=== PATIENT | female | born 1955 | race African-American/Black ===

== ENCOUNTER → 2017-03-21 | Outpatient (CLI) | payer MEDICARE ==
--- NOTE | 2017-03-21 13:17 | WOMENS IMAGING REPORT ---
EXAM DESCRIPTION: 3D SCREENING MAMMO BILAT COMPLETED DATE/TIME: 03/21/2017 7:36 am REASON FOR STUDY: SCREENING MAMMO Z12.31 ENCNTR SCREEN MAMMOGRAM FOR MALIGNANT NEOPLASM OF ADRIENNE COMPARISON: None. TECHNIQUE: Standard craniocaudal and mediolateral oblique views of each breast recorded using digita l acquisition and breast tomosynthesis. LIMITATIONS: None. FINDINGS: No masses, calcifications or architectural distortion. No areas of suspicion. Read with the assistance of CAD. .[facility] - R2 Cenova Version 1.3 .[facility] - R2 Cenova Version 1.3 .[facility] - R2 Cenova Version 2.4 .[facility] - R2 Cenova Version 2.4 .[facility] - R2 Business Instructor Version 9.2 IMPRESSION: NORMAL MAMMOGRAM. BIRADS 1. BREAST DENSITY: b. There are scattered areas of fibroglandular density. BIRAD: 1 NEGATIVE RECOMMENDATION: ROUTINE SCREENING COMMENT: The patient has been notified of the results by letter per SA requirements. Additional no tification policies are in place for contacting patient with suspicious or incomplete findings. Quality ID #[id number]: The [employer] recommends an annual screening mammogram for women aged 40 years or over. This facility utilizes a reminder system to ensure that all patients receive reminder letters, and/or direct phone calls for appointments. This includes reminders for routine scr eening mammograms, diagnostic mammograms, or other Breast Imaging Interventions when appropriate. Th is patient will be placed in the appropriate reminder system. The [employer] (ACR) has developed recommendations for screening MRI of the breast s in certain patient populations, to be used in conjunction with mammography. Breast MRI surveillanc e may be appropriate for women with more than 20% lifetime risk of developing breast cancer as deter mined by genetic testing, significant family history of the disease, or history of mantle radiation f or Hodgkins Disease. ACR Practice Guidelines 2008. DBT Technology DBT is a type of tomographic mammography. With conventional mammography, overlapping breast tissue ma y make lesions difficult to detect, even with good compression. DBT uses an x-ray tube that rotates a round the breast, taking images at different angles. These images are then combined to create thin sl ices of the breast that the radiologist can view as a 3D reconstruction. The [employer] unit can perform full-field digital mammograms (2D imaging); or DBT (3D imaging); or both, in a combination mode that quickly performs both the mammogram and the tomosynthesis scan while the breast is still compressed. PQRS 6045F: Fluoroscopic imaging is not utilized for breast tomosynthesis. TECHNICAL DOCUMENTATION: FINDING NUMBER: (1) ASSESSMENT: (1) JOB ID: [id number] [employer]- All Rights Reserved
== END ==
LOC: WI 07:17
PROVIDERS: ATTEND Internal Medicine
DX: Z12.31 Encounter for screening mammogram for malignant neoplasm of breast (principal)
CPT/HCPCS: 77063; G0202; 77067

== ENCOUNTER → 2017-08-07 | Outpatient (CLI) | payer MEDICARE ==
--- NOTE | 2017-08-07 10:12 | RADIOLOGY REPORT (SQ) ---
EXAM DESCRIPTION: PARANASAL SINUSES COMPLETED DATE/TIME: 08/07/2017 10:00 am REASON FOR STUDY: COUGH,PNEUMONIA, UNSPECIFIED ORGANISM R05 COUGH J18.9 PNEUMONIA, UNSPECIFIED ORG ANISM COMPARISON: None. NUMBER OF VIEWS: Three views. TECHNIQUE: Images of the paranasal sinuses acquired. LIMITATIONS: None. FINDINGS: ORBITS: No fracture. No foreign body. SINUSES: No mucosal thickening. No air fluid levels. FACIAL BONES: No fracture. OTHER: No other significant finding. IMPRESSION: NO PLAIN RADIOGRAPHIC EVIDENCE FOR SINUS DISEASE. TECHNICAL DOCUMENTATION: JOB ID: [id number] [employer]- All Rights Reserved Reading location - IP/workstation name: [email or web address]
--- NOTE | 2017-08-07 10:14 | RADIOLOGY REPORT (SQ) ---
EXAM DESCRIPTION: CHEST PA/LATERAL COMPLETED DATE/TIME: 08/07/2017 10:00 am REASON FOR STUDY: COUGH,PNEUMONIA, UNSPECIFIED ORGANISM R05 COUGH J18.9 PNEUMONIA, UNSPECIFIED ORG ANISM COMPARISON: 06/08/2012 NUMBER OF VIEWS: Two view. TECHNIQUE: Frontal and lateral radiographic views of the chest acquired. LIMITATIONS: None. FINDINGS: LUNGS AND PLEURA: No opacities, masses or pneumothorax. No pleural effusion. MEDIASTINUM AND HILAR STRUCTURES: No masses. No contour abnormalities. HEART AND VASCULAR STRUCTURES: Heart enlarged without failure. Aorta normal for age. BONES: No acute findings. HARDWARE: None in the chest. OTHER: No other significant finding. IMPRESSION: No acute findings in the chest. TECHNICAL DOCUMENTATION: JOB ID: [id number] [employer]- All Rights Reserved Reading location - IP/workstation name: [email or web address]
== END ==
LOC: OD 09:37
PROVIDERS: ATTEND Internal Medicine
DX: J18.9 Pneumonia, unspecified organism (principal); R05 Cough
CPT/HCPCS: 70220; 71046

== ENCOUNTER 2018-06-26 15:22 | Day surgery (SDC) | payer MEDICARE ==
[2018-06-26] MEDS ORDERED: ONDANSETRON HCL INJ/PF 4 MG/2 ML SDV ONE (15:40)
[2018-06-26] MEDS ORDERED: DIPHENHYDRAMINE HCL 50 MG/ML VIAL ONE (15:40)
[2018-06-26] MEDS ORDERED: FLUMAZENIL INJ 0.5 MG/5 ML VIAL ONE (15:41)
[2018-06-26] MEDS ORDERED: EPINEPHRINE INJ 1 MG/10 ML DISP.SYRIN ONE (15:41)
[2018-06-26] MEDS ORDERED: GLUCAGON,HUMAN RECOMB 1 MG INJ ONE (15:41)
[2018-06-26] MEDS ORDERED: NALOXONE HCL INJ/PF 0.4 MG/1 ML SDV ONE (15:41)
[2018-06-26] MEDS: MIDAZOLAM 2 MG/2 ML INJ ONE ×3 (16:47→17:14)
[2018-06-26] MEDS: FENTANYL CITRATE INJ/PF 100 MCG/2 ML AMPUL ONE ×2 (16:49→16:51)
--- NOTE | 2018-06-26 17:32 | Operative Report ---
Operative Report DATE OF SURGERY: 06/26/18 Operative Report: Pre-op diagnosis: Iron deficiency anemia with abnormal capsule endoscopy Post-op diagnosis: 1. Tiny jejunal angiodysplasia 2. Multiple small gastric angiodysplasia with active bleeding 3. Jejunal polyp Surgery: Esophagogastroduodenoscopy with argon plasma coagulation, polypectomy, and bipolar cauterization Medications: Versed 4mg Fentanyl 100mcg IV push Tissue removed: Jejunal polyp for pathology Procedure: After informed consent obtained from patient, the throat was sprayed with Hurricane and conscious sedation was achieved. The upper endoscope was inserted into the esophagus under direct vision and advanced into the stomach. The duodenum was entered and examined to the second part. Endoscope was then slowly pulled out of the patient as the mucosa was examined into details. Patient tolerated procedure well. Findings Esophagus: Normal Antrum: Normal Body: Two 2mm angiodysplasia that were cauterized using the argon plasma ski tow operator. A third angiodysplasia was noted that was actively bleeding on my way out of the stomach. This was cauterized using a bipolar probe Fundus: Normal Duodenum first part: Normal Duodenum second part: Normal Jejunum: The jejunum was examined up to 40 cm beyond the ligament of Treitz. A tiny angiodysplasia was cauterized using the APC probe Plan: Await pathology. Hold 325 mg of aspirin for 5 days and resume with 81 mg of aspirin daily. Increase omeprazole to twice a day for a month OPERATION: .
[2018-06-26 18:42] VITALS: BP 116/70
== END 2018-06-26 18:30 | disposition home or self-care (01) ==
LOC: END 15:22
PROVIDERS: ATTEND Internal Medicine Gastroenterology
DX: K31.7 Polyp of stomach and duodenum (principal); K31.811 Angiodysplasia of stomach and duodenum with bleeding; D50.9 Iron deficiency anemia, unspecified; Z88.5 Allergy status to narcotic agent
CPT/HCPCS: 43255; 43251; 44378; 82962; 88305 ×2; J2250; J3010; J0171; J1200; J1610; J2310; J2405; J3490

== ENCOUNTER → 2018-07-27 | Outpatient (CLI) | payer MEDICARE ==
--- NOTE | 2018-07-27 12:17 | WOMENS IMAGING REPORT ---
EXAM DESCRIPTION: 3D SCREENING MAMMO BILAT COMPLETED DATE/TIME: 07/27/2018 8:09 am REASON FOR STUDY: Z12.31 ROUTINE 3D BILATERAL SCREENING Z12.31 ENCNTR SCREEN MAMMOGRAM FOR MALIGNAN T NEOPLASM OF ADRIENNE COMPARISON: 2018 EXAM PARAMETERS: Views: Standard craniocaudal and mediolateral oblique views of each breast recorded using digital acquisition and breast tomosynthesis. Read with the assistance of CAD. .[facility] - R2 Cognos Architect Version 9.2 LIMITATIONS: None. FINDINGS: No suspicious masses, suspicious calcifications or architectural distortion. No areas of c oncern. IMPRESSION: Assessment: Negative MAMMOGRAM. BIRADS 1. BREAST DENSITY: a. The breasts are almost entirely fatty. BIRAD: 1 NEGATIVE RECOMMENDATION: ROUTINE SCREENING COMMENT: The patient has been notified of the results by letter per MQSA requirements. Additional no tification policies are in place for contacting patient with suspicious or incomplete findings. Quality ID #225: The [employer] recommends an annual screening mammogram for women aged 40 years or over. This facility utilizes a reminder system to ensure that all patients receive reminder letters, and/or direct phone calls for appointments. This includes reminders for routine scr eening mammograms, diagnostic mammograms, or other Breast Imaging Interventions when appropriate. Th is patient will be placed in the appropriate reminder system. TECHNICAL DOCUMENTATION: FINDING NUMBER: (1) ASSESSMENT: (1) JOB ID: [id number] [employer]- All Rights Reserved Reading location - IP/workstation name: [email or web address]
== END ==
LOC: WI 07:41
PROVIDERS: ATTEND Internal Medicine
DX: Z12.31 Encounter for screening mammogram for malignant neoplasm of breast (principal)
CPT/HCPCS: 77063; 77067

== ENCOUNTER → 2020-02-18 | Outpatient (CLI) | payer MEDICARE ==
--- NOTE | 2020-02-18 11:09 | WOMENS IMAGING REPORT ---
EXAM DESCRIPTION: 3D SCREENING MAMMO BILAT IMAGES COMPLETED DATE/TIME: 02/18/2020 10:08 am REASON FOR STUDY: Z12.31 ENCNTR SCREEN MAMMOGRAM FOR MALIGNANT NEOPLASM OF BREAST Z12.31 ENCNTR SCR EEN MAMMOGRAM FOR MALIGNANT NEOPLASM OF ADRIENNE COMPARISON: 2018 EXAM PARAMETERS: Views: Standard craniocaudal and mediolateral oblique views of each breast recorded using digital acquisition and breast tomosynthesis. Read with the assistance of CAD. .[facility] - R2 Productivity Engineer Version 9.2 LIMITATIONS: None. FINDINGS: No suspicious masses, suspicious calcifications or architectural distortion. No areas of c oncern. IMPRESSION: NEGATIVE MAMMOGRAM. BIRADS 1. BREAST DENSITY: b. There are scattered areas of fibroglandular density. BIRAD: ASSESSMENT: 1 NEGATIVE RECOMMENDATION: ROUTINE SCREENING COMMENT: The patient has been notified of the results by letter per MQSA requirements. Additional no tification policies are in place for contacting patient with suspicious or incomplete findings. Quality ID #225: The [employer] recommends an annual screening mammogram for women aged 40 years or over. This facility utilizes a reminder system to ensure that all patients receive reminder letters, and/or direct phone calls for appointments. This includes reminders for routine scr eening mammograms, diagnostic mammograms, or other Breast Imaging Interventions when appropriate. Th is patient will be placed in the appropriate reminder system. TECHNICAL DOCUMENTATION: FINDING NUMBER: (1) ASSESSMENT: (1) JOB ID: [id number] [employer]- All Rights Reserved Reading location - IP/workstation name: [email or web address]
== END ==
LOC: WI 09:46
PROVIDERS: ATTEND Internal Medicine
DX: Z12.31 Encounter for screening mammogram for malignant neoplasm of breast (principal)
CPT/HCPCS: 77063; 77067

== ENCOUNTER 2020-04-07 00:16 | Inpatient (IN) | payer MEDICARE ==
[2020-04-07] MEDS ORDERED: IPRATROPIUM/ALBUTEROL 0.5-2.5 MG/3 ML AMPUL NEB ONE ×2 (00:24→00:31)
--- NOTE | 2020-04-07 00:37 | ER Document Report ---
ED General - General Chief Complaint: Respiratory Distress Stated Complaint: RESPIRATORY DISTRESS Notes: 65-year-old female with history of hypertension diabetes COPD on home O2 2 L presents with worsening shortness of breath over the past day. Patient has had cough cold symptoms over the past approximately 6 days as has everybody in her household. Patient was scheduled to have a Covid test tomorrow but felt more short of breath so called EMS. Patient was satting 30s on room air per EMS which came up to 70s on CPAP 100% FiO2. Patient denies any chest pain, lower extremity edema, cardiac history, fever, hemoptysis, diarrhea, vomiting, abdominal pain, syncope, trauma. Given 2 g of mag, 125 Solu-Medrol by EMS. TRAVEL OUTSIDE OF THE [place] IN LAST 30 DAYS: No - Related Data Allergies/Adverse Reactions: codeine [Codeine] Allergy (Unknown, Verified 06/26/18 15:46) Past Medical History - General Information source: Patient - Social History Smoking Status: Smoker,Current Status Unk Family History: Reviewed & Not Pertinent - Past Medical History Cardiac Medical History: Reports: Hx Hypertension - MEDS Denies: Hx Coronary Artery Disease, Hx Heart Attack Pulmonary Medical History: Reports: Hx COPD - WEARS 3L O2 AT NIGHT Denies: Hx Asthma, Hx Bronchitis, Hx Pneumonia Neurological Medical History: Denies: Hx Cerebrovascular Accident, Hx Seizures Endocrine Medical History: Reports: Hx Diabetes Mellitus Type 2 Musculoskeletal Medical History: Denies Hx Arthritis - Immunizations Hx Diphtheria, Pertussis, Tetanus Vaccination: Yes Hx Pneumococcal Vaccination: 01/09/13 Review of Systems - Review of Systems -: Yes ROS unobtainable due to patient's medical condition - BiPAP Physical Exam - Vital signs Vitals: Resp Pulse Ox 21 H 87 L 04/07/20 00:16 04/07/20 00:16 - Notes Notes: PHYSICAL EXAMINATION: GENERAL: Uncomfortable appearing middle-aged woman brought in on CPAP with tachypnea HEAD: Atraumatic, normocephalic. EYES: Pupils equal round and appropriate constriction, sclera anicteric, conjunctiva are normal. ENT: nares patent, moist mucous membranes. NECK: Normal range of motion, supple without lymphadenopathy LUNGS: Tachypneic with accessory muscle use on CPAP which resolved with BiPAP, scattered rhonchi bilaterally, good air movement, no wheezing HEART: Regular rate and rhythm without murmurs ABDOMEN: Soft, nontender, no guarding, no masses, no CVAT EXTREMITIES: Normal range of motion, no pitting or edema. No cyanosis. NEUROLOGICAL: Awake, alert, conversing appropriately, moves all extremities spontaneously. PSYCH: Normal mood, normal affect. SKIN: Warm, Dry, normal turgor, no rashes or lesions noted. Course - Re-evaluation Re-evalutation: 04/07/20 00:36 Respiratory failure requiring NIPPV, patient was satting 70s on CPAP but is now maintaining sats in the low 90s on BiPAP and her work of breathing has greatly improved. Given 1 week of viral symptoms with all household contacts also sick concerning for COVID-19 infection. Rule out bacterial pneumonia, new onset CHF, ACS, PE, but low pretest probability. EKG, chest x-ray, BiPAP, monitor, labs with viral filter, trop, BNP, and admit. 04/07/20 00:52 Blood pressure low, but patient clinically appears to be perfusing normally, denies any dizziness or weakness, when I repositioned patient and rechecked blood pressure it improved. Will give bolus of crystalloid however as patient has likely been having increased insensible losses over the past 6 days of illness. 04/07/20 02:13 Given density of right infiltrate not classically found with COVID-19 pneumonia I ordered blood cultures lactate and gave empiric antibiotics to cover for bacterial superinfection. Discussed case with Dr. Dumont who has accepted her to [facility]. Patient's hemoglobin 9.2, has not been checked for greater than 5 years here but last value here was 11. Patient says that she has been on iron supplementation for iron deficiency anemia for years and has had black stools for years without any current change, denies any abdominal pain, says she has 1 formed stool per day. On rectal exam guaiac was positive. I informed the RN and asked that she hold the Lovenox I had ordered. I called Dr. Dumont back and informed him that the hemoglobin was lower than the only available baseline I have and that her guaiac was positive and asked if he wanted to cancel his Lovenox prophylaxis order as well, but he does not want to cancel Lovenox prophylaxis at this time. The patient was evaluated during the global COVID-19 pandemic and that diagnosis was suspected/considered upon their initial presentation. Their evaluation, treatment and testing was consistent with current guidelines for patients who present with complaints or symptoms that may be related to COVID-19. - Vital Signs Vital signs: Temp Pulse Resp BP Pulse Ox 97.4 F 112 H 32 H 154/97 H 87 L 04/10/20 04:11 04/10/20 04:11 04/10/20 04:33 04/10/20 04:11 04/10/20 04:33 - Laboratory Results Result Diagrams: 04/10/20 05:50 04/10/20 05:50 Laboratory Results Interpreted: 04/07/20 04/07/20 04/07/20 00:26 00:26 00:26 WBC 14.2 H Hgb 9.2 L Hct 28.9 L MCV 75 L MCH 23.7 L MCHC 31.8 L RDW 17.8 H Lymph % (Auto) 10.0 L Absolute Neuts (auto) 12.2 H Seg Neutrophils % 86.3 H APTT Fibrinogen D-Dimer 3.23 H Sodium 135.8 L Chloride 96 L Carbon Dioxide 31 H BUN 27 H Glucose 270 H Calcium 7.7 L NT-Pro-B Natriuret Pep Total Protein 5.3 L Albumin 2.8 L 04/07/20 04/07/20 00:26 00:26 WBC Hgb Hct MCV MCH MCHC RDW Lymph % (Auto) Absolute Neuts (auto) Seg Neutrophils % APTT 46.1 H Fibrinogen 726 H D-Dimer Sodium Chloride Carbon Dioxide BUN Glucose Calcium NT-Pro-B Natriuret Pep 186 H Total Protein Albumin Critical Laboratory Results Reviewed: No Critical Results - Radiology Results Critical Radiology Results Reviewed: No Critical Results Critical Care Note - Critical Care Note Total time excluding time spent on procedures (mins): 35 - Spent time evaluating critically ill patient requiring BiPAP for hypoxic and hypercapnic respiratory failure Discharge - Discharge Clinical Impression: Pneumonia due to COVID-19 virus, Hypocalcemia Pneumonia Qualifiers: Pneumonia type: due to unspecified organism Laterality: right Lung location: unspecified part of lung Qualified Code(s): J18.9 - Pneumonia, unspecified organism Respiratory failure Qualifiers: Chronicity: acute on chronic Respiratory failure complication: hypoxia and hypercapnia Qualified Code(s): J96.21 - Acute and chronic respiratory failure with hypoxia GI bleed Qualifiers: GI bleed type/associated pathology: unspecified gastrointestinal hemorrhage type Qualified Code(s): K92.2 - Gastrointestinal hemorrhage, unspecified Disposition: ADMITTED INPATIENT Unit Admitted: [facility]
[2020-04-07 00:52] LABS: ABSOLUTE BASOPHILS # (AUTO) 0.1 10^3/uL (0.0-0.2); ABSOLUTE LYMPHOCYTES (AUTO) 1.4 10^3/uL (0.5-4.7); ABSOLUTE MONOCYTES (AUTO) 0.4 10^3/uL (0.1-1.4); ABSOLUTE NEUT (AUTO) 12.2 10^3/uL (1.7-8.2); BASOPHILS % (AUTO) 0.5 % (0-2); HEMATOCRIT 28.9 % (36.0-47.0); HEMOGLOBIN 9.2 g/dL (12.0-15.5); MEAN CORPUSCULAR HEMOGLOBIN 23.7 pg (27.0-33.4); MEAN CORPUSCULAR HGB CONC 31.8 g/dL (32.0-36.0); MEAN CORPUSCULAR VOLUME 75 fl (80-97); MONOCYTES % (AUTO) 3.2 % (3-13); PLATELET COUNT 408 10^3/uL (150-450); RED BLOOD COUNT 3.87 10^6/uL (3.72-5.28); RED CELL DISTRIBUTION WIDTH 17.8 % (11.5-14.0); SEGMENTED NEUTROPHILS % (AUTO) 86.3 % (42-78); TOTAL CELLS COUNTED % (AUTO) 100 %; WHITE BLOOD COUNT 14.2 10^3/uL (4.0-10.5)
[2020-04-07] MEDS ORDERED: NORMAL SALINE 1000 ML 1,000 ML IV ONE (00:52)
[2020-04-07 01:01] LABS: VENOUS BLOOD BASE EXCESS 2.2 mmol/L; VENOUS BLOOD HCO3 28.3 mmol/L (20-32); VENOUS BLOOD PCO2 50.3 mmHg (35-63); VENOUS BLOOD PH 7.37 (7.30-7.42)
--- NOTE | 2020-04-07 01:29 | RADIOLOGY REPORT (SQ) ---
EXAM DESCRIPTION: X-ray single view chest. CLINICAL HISTORY: 65 years Female, resp distress COMPARISON: 08/07/2017 TECHNIQUE: Single portable x-ray view of the chest performed on 04/07/2020 at 12:57 AM FINDINGS: The lungs are well-expanded. There is airspace consolidation in the right midlung and right inferior hemithorax. There may be airspace consolidation along the left lateral hemithorax as well. Findings are concerning for multifocal pneumonia. There is no evidence of a pneumothorax. The cardiac silhouette is normal in size and configuration. The mediastinal contours are normal. No acute osseous abnormality is identified. No acute soft tissue abnormalities are seen. Lines and tubes: None. Free air: None IMPRESSION: Radiographic findings concerning for multifocal pneumonia as described above.
[2020-04-07 01:30] LABS: ALBUMIN 2.8 g/dL (3.5-5.0); ALKALINE PHOSPHATASE 73 U/L (38-126); ANION GAP 9 (5-19); ASPARTATE AMINO TRANSFERASE 31 U/L (14-36); BILIRUBIN,DIRECT 0.3 mg/dL (0.0-0.4); BILIRUBIN,TOTAL 0.4 mg/dL (0.2-1.3); BLOOD UREA NITROGEN 27 mg/dL (7-20); CALCIUM 7.7 mg/dL (8.4-10.2); CARBON DIOXIDE 31 mmol/L (22-30); CHLORIDE 96 mmol/L (98-107); GLUCOSE 270 mg/dL (75-110); POTASSIUM 4.4 mmol/L (3.6-5.0); TOTAL PROTEIN 5.3 g/dL (6.3-8.2)
[2020-04-07 01:40] LABS: TROPONIN I 0.015 ng/mL
[2020-04-07] MEDS ORDERED: CALCIUM GLUCONATE 1000 MG/10 ML INJ IV ONE (01:47)
[2020-04-07] MEDS ORDERED: CEFTRIAXONE 1 GM/D5W RTU 1 GM/50 ML RTUPB IV ONE (01:49)
[2020-04-07] MEDS ORDERED: AZITHROMYCIN INJ 500 MG VIAL IV ONE (01:49)
[2020-04-07] MEDS ORDERED: ENOXAPARIN SODIUM INJ 150 MG/1 ML DISP.SYRIN SUBCUT ONE (01:51)
[2020-04-07] MEDS ORDERED: DEXTROSE 50%-WATER 25 GM/50 ML DISP.SYRIN IV PRN ×4 (02:08→20:30)
[2020-04-07] MEDS ORDERED: GLUCAGON,HUMAN RECOMB 1 MG INJ IM PRN ×2 (02:08→20:30)
[2020-04-07] MEDS ORDERED: DEXTROSE 40% GEL 15 GM TUBE PO PRN ×4 (02:08→20:30)
[2020-04-07] MEDS ORDERED: ENOXAPARIN SODIUM INJ 40 MG/0.4 ML DISP.SYRIN SUBCUT SCH (02:15)
[2020-04-07] MEDS ORDERED: CEFEPIME 2 GM/D5W RTU 2 GM/50 ML RTUPB IV ONE (02:15)
[2020-04-07] MEDS ORDERED: ENOXAPARIN SODIUM INJ 40 MG/0.4 ML DISP.SYRIN SUBCUT ONE (02:30)
[2020-04-07 02:46] LABS: INTERNATIONAL RATION (INR) 0.95; PROTHROMBIN TIME 12.9 SEC (11.4-15.4)
[2020-04-07 02:47] LABS: FIBRINOGEN 726 mg/dL (209-497); PARTIAL THROMBOPLASTIN TIME 46.1 SEC (23.5-35.8)
[2020-04-07] MEDS: IPRATROPIUM/ALBUTEROL 0.5-2.5 MG/3 ML AMPUL NEB SCH ×5 (02:56→21:48)
[2020-04-07] MEDS ORDERED: LEVOFLOXACIN 750 MG/D5W RTU 750 MG/150 ML RTUPB IV ONE (03:00)
[2020-04-07 03:26] LABS: CREATINE KINASE MB 0.41 ng/mL (<4.55); TROPONIN I 0.026 ng/mL
[2020-04-07 04:23] LABS: C-REACTIVE PROTEIN 338.2 mg/L (<10.0)
[2020-04-07] MEDS: INSULIN LISPRO 100 UNIT/ML 3 ML VIAL SUBCUT SCH ×5 (05:00→22:35)
--- NOTE | 2020-04-07 05:31 | RADIOLOGY REPORT (SQ) ---
EXAM DESCRIPTION: CT CHEST ANGIOGRAPHY WITH IV CONTRAST COMPLETED DATE/TME: 04/07/2020 04:56 CLINICAL HISTORY: 65 years, Female, elevated Ddimer 3.23, CREAT 0.93 COMPARISON: None. TECHNIQUE: Axial images through the chest were performed after the administration of intravenous contrast using a pulmonary embolus protocol. MIPS were performed. This exam was performed according to our departmental dose-optimization program which includes use of Automated Exposure Control, adjustment of the mA and/or kV according to patient size and/or use of iterative reconstruction technique. FINDINGS: No pulmonary embolus is identified. Normal caliber aorta without dissection. No pericardial effusion. Extensive consolidation in the right upper lobe also involving the right lower lobe and periphery of the left upper and lower lobes. Extensive interstitial changes with honeycombing is also present. The trachea and central airways are clear. There is a tiny right and even smaller left pleural fluid collection. Enlarged mediastinal and hilar lymphadenopathy likely reactive. Soft tissues are unremarkable. No acute osseous findings. Multilevel degenerative changes in the spine. No acute abnormality within the visualized upper abdomen. IMPRESSION: Negative for pulmonary embolism. Extensive interstitial and alveolar opacities throughout the lungs concerning for multi lobar multifocal pneumonia. TECHNICAL DOCUMENTATION: Quality ID # [id number]: Final reports with documentation of one or more dose reduction techniques (e.g., Automated exposure control, adjustment of the mA and/or kV according to patient size, use of iterative reconstruction technique) copyright 2011 [employer]- All Rights Reserved
[2020-04-07] MEDS ORDERED: VANCOMYCIN HCL 1,000 MG in DEXTROSE 5%-WATER 250 ML IV ONE (05:38)
[2020-04-07] MEDS ORDERED: VANCOMYCIN HCL 0 MG in DEXTROSE 5%-WATER 250 ML IV NR (05:45)
[2020-04-07 05:54] LABS: ARTERIAL BLOOD BASE EXCESS -1.1 mmol/L; ARTERIAL BLOOD H2CO3 1.15 mmol/L (1.05-1.35); ARTERIAL BLOOD HCO3 23.4 mmol/L (20-24); ARTERIAL BLOOD O2 SATURATION 97.6 % (94-98); ARTERIAL BLOOD PCO2 38.3 mmHg (35-45); ARTERIAL BLOOD PO2 99.3 mmHg (80-100); ARTERIAL BLOOD TOTAL CO2 24.6 mmol/L (21-25)
[2020-04-07] MEDS ORDERED: VANCOMYCIN HCL INJ 1000 MG VIAL IV PRN (05:54)
[2020-04-07] MEDS ORDERED: VANCOMYCIN HCL 2,000 MG in DEXTROSE 5%-WATER 500 ML IV ONE (06:00)
[2020-04-07 06:01] LABS: ARTERIAL BLOOD FIO2 100%
--- NOTE | 2020-04-07 07:39 | EKG REPORT ---
SEVERITY:- OTHERWISE NORMAL ECG - SINUS ARRHYTHMIA, RATE [id number] : Confirmed by: Edin Hickman MD 07-Apr-2020 07:39:01
[2020-04-07] MEDS ORDERED: VANCOMYCIN HCL 1,500 MG in DEXTROSE 5%-WATER 250 ML IV ONE (08:00)
[2020-04-07 08:21] LABS: APPEARANCE,URINE SLIGHTLY-CLOUDY; BILIRUBIN,URINE NEGATIVE (NEGATIVE); COLOR,URINE YELLOW; GLUCOSE, URINE >=500 mg/dL (NEGATIVE); KETONES,URINE NEGATIVE (NEGATIVE); PROTEIN,URINE 30 mg/dL (NEGATIVE); URINE SPECIFIC GRAVITY 1.043; UROBILINOGEN,URINE NEGATIVE mg/dL (<2.0)
[2020-04-07] MEDS: RINGERS SOLUTION,LACTATED 1,000 ML IV PRN (13:15)
[2020-04-07] MEDS: CEFEPIME HCL 2 GM in DEXTROSE 5%-WATER 50 ML IV SCH (17:39)
[2020-04-07] MEDS ORDERED: CEFEPIME 2 GM/D5W RTU 2 GM/50 ML RTUPB IV SCH (18:00)
--- NOTE | 2020-04-07 20:21 | PDOC H&P ---
History of Present Illness Admission Date/PCP: 04/07/20 02:13 LOU TREJO MD History of Present Illness: PHAN SEAMAN is a 65 year old female, She has multiple comorbid conditions in cluding chronic obstructive lung disease, hypertension, chronic respiratory failure on home oxygen she came to the emergency room for evaluation of respiratory distress, shortness of breath, she called the office couple of days ago requesting to have antibiotic for respiratory symptoms, she was prescribed azithromycin, patient symptoms continue to progress she was advised to come to the office to get tested for SARS-CoV-2 infection. As symptoms progresses she called rescue squad she was transferred to the emergency room for evaluation.She was evaluated in the ER she had a chest x-ray done that demonstrated airspace consolidation in the right midlung,right inferior hemithorax ,also found was airspace consolidation along the lateral left hemithorax as well findings consistent with multifocal pneumonia. She also underwent CT angiogram of the chest this demonstrated extensive consolidation in the right upper lobe, the right lower lobe, peripherally of the left upper and lower lobes. Extensive interstitial changes with honeycombing also present the trachea central airways were clear there was no pulmonary embolus demonstrated on the CT angiogram.The arterial blood gas on 100% FiO2 pH is 7.4, PO2 99.3, PCO2 30.3, bicarbonate is 23.4, SARS-CoV-2 test was negative Past Medical History Cardiac Medical History: Reports: Hypertension - MEDS Pulmonary Medical History: Reports: Chronic Obstructive Pulmonary Disease (COPD) - WEARS 3L O2 AT NIGHT Neurological Medical History: Denies: Seizures Endocrine Medical History: Reports: Diabetes Mellitus Type 2, Obesity Hematology: Reports: Anemia Social History Smoking Status: Former Smoker Electronic Cigarette use?: No Frequency of Alcohol Use: None Hx Recreational Drug Use: No Drugs: None Hx Prescription Drug Abuse: No Family History Family History: Reviewed & Not Pertinent Parental Family History Reviewed: Yes Children Family History Reviewed: Yes Sibling(s) Family History Reviewed.: Yes Medication/Allergy Home Medications: Albuterol Sulfate [Proair HFA Inhalation Aerosol 8.5 gm MDI] 2 puff IH Q4H PRN #1 mdi 06/08/12 Clonidine HCl [Catapres 0.3 mg Tablet] 0.3 mg PO TID 06/08/12 Hydralazine HCl 50 mg PO BID 02/10/13 Metformin HCl [Glumetza ER 500 mg Tablet] 500 mg PO BID 02/10/13 Victozia 1.8 mg PO DAILY 02/10/13 Fluticasone/Vilanterol [Breo Ellipta 200-25 Mcg INH] 1 each IH DAILY 06/25/18 Insulin Glargine,Hum.rec.anlog [Lantus Insulin 100 Unit/1 ml 10 ml] 12 unit SUBCUT DAILY 06/25/18 Iron 195 mg PO DAILY 06/25/18 Olmesartan/Amlodipin/Hcthiazid [Opnctxr-Ejbpgn-Xmav 40-10-25Mg] 1 each PO DAILY 06/25/18 Atorvastatin Calcium [Lipitor 40 mg Tablet] 40 mg PO QHS 04/07/20 Glimepiride [Amaryl 4 mg Tablet] 4 mg PO DAILY 04/07/20 Montelukast Sodium [Singulair 10 mg Tablet] 10 mg PO QHS 04/07/20 Pioglitazone HCl [Actos 15 mg Tablet] 1 tab PO DAILY 04/07/20 Allergies/Adverse Reactions: codeine [Codeine] Allergy (Unknown, Verified 06/26/18 15:46) Review of Systems Constitutional: PRESENT: fatigue, fever(s) Eyes: ABSENT: visual disturbances Ears: ABSENT: hearing changes Cardiovascular: ABSENT: chest pain, dyspnea on exertion, edema, orthropnea, palpitations Respiratory: PRESENT: cough, dyspnea Gastrointestinal: ABSENT: abdominal pain, constipation, diarrhea, hematemesis, hematochezia, nausea, vomiting Genitourinary: ABSENT: dysuria, hematuria Musculoskeletal: ABSENT: joint swelling Integumentary: ABSENT: rash, wounds Neurological: ABSENT: abnormal gait, abnormal speech, confusion, dizziness, focal weakness, syncope Psychiatric: ABSENT: anxiety, depression, homidical ideation, suicidal ideation Endocrine: ABSENT: cold intolerance, heat intolerance, menstrual abnormalities, polydipsia, polyuria Hematologic/Lymphatic: ABSENT: easy bleeding, easy bruising, lymphadenopathy Physical Exam Vital Signs: Temp Pulse Resp BP Pulse Ox 97.3 F 80 28 H 129/66 H 91 L 04/07/20 15:42 04/07/20 16:17 04/07/20 16:17 04/07/20 15:42 04/07/20 16:17 Intake & Output 04/06/20 04/07/20 04/08/20 06:59 06:59 06:59 Intake Total 1250 360 Output Total 1300 Balance 1250 -940 Weight 132.6 kg General appearance: PRESENT: other - Patient alert on BiPAP Head exam: PRESENT: atraumatic, normocephalic Eye exam: PRESENT: conjunctiva pink, EOMI, PERRLA Ear exam: PRESENT: normal external ear exam Mouth exam: PRESENT: moist, tongue midline Neck exam: PRESENT: full ROM Respiratory exam: PRESENT: rhonchi Cardiovascular exam: PRESENT: RRR, +S1, +S2 Vascular exam: PRESENT: normal capillary refill GI/Abdominal exam: PRESENT: normal bowel sounds, soft Rectal exam: PRESENT: deferred Neurological exam: PRESENT: alert, CN II-XII grossly intact Psychiatric exam: PRESENT: appropriate affect, normal mood Skin exam: PRESENT: dry, intact, warm Results Laboratory Results: 04/07/20 00:26 04/07/20 00:26 04/07/20 04/07/20 04/07/20 00:26 00:26 00:26 WBC 14.2 H RBC 3.87 Hgb 9.2 L Hct 28.9 L MCV 75 L MCH 23.7 L MCHC 31.8 L RDW 17.8 H Plt Count 408 Seg Neutrophils % 86.3 H Carbonic Acid HCO3/H2CO3 Ratio ABG pH ABG pCO2 ABG pO2 ABG HCO3 ABG O2 Saturation ABG Base Excess VBG pH 7.37 VBG pCO2 50.3 VBG HCO3 28.3 VBG Base Excess 2.2 FiO2 Sodium 135.8 L Potassium 4.4 Chloride 96 L Carbon Dioxide 31 H Anion Gap 9 BUN 27 H Creatinine 0.93 Est GFR ( Amer) > 60 Glucose 270 H Lactic Acid Calcium 7.7 L Ferritin Total Bilirubin 0.4 AST 31 Alkaline Phosphatase 73 C-Reactive Protein Total Protein 5.3 L Albumin 2.8 L PTH Intact Urine Color Urine Appearance Urine pH Ur Specific [place] Urine Protein Urine Glucose (UA) Urine Ketones Urine Blood Urine RBC (Auto) 04/07/20 04/07/20 04/07/20 00:26 02:33 02:33 WBC RBC Hgb Hct MCV MCH MCHC RDW Plt Count Seg Neutrophils % Carbonic Acid HCO3/H2CO3 Ratio ABG pH ABG pCO2 ABG pO2 ABG HCO3 ABG O2 Saturation ABG Base Excess VBG pH VBG pCO2 VBG HCO3 VBG Base Excess FiO2 Sodium Potassium Chloride Carbon Dioxide Anion Gap BUN Creatinine Est GFR ( Amer) Glucose Lactic Acid 0.9 Calcium Ferritin 149.00 Total Bilirubin AST Alkaline Phosphatase C-Reactive Protein 338.2 H Total Protein Albumin PTH Intact 105.4 H Urine Color Urine Appearance Urine pH Ur Specific [place] Urine Protein Urine Glucose (UA) Urine Ketones Urine Blood Urine RBC (Auto) 04/07/20 04/07/20 05:08 06:45 WBC RBC Hgb Hct MCV MCH MCHC RDW Plt Count Seg Neutrophils % Carbonic Acid 1.15 HCO3/H2CO3 Ratio 20:1 ABG pH 7.40 ABG pCO2 38.3 ABG pO2 99.3 ABG HCO3 23.4 ABG O2 Saturation 97.6 ABG Base Excess -1.1 VBG pH VBG pCO2 VBG HCO3 VBG Base Excess FiO2 100% Sodium Potassium Chloride Carbon Dioxide Anion Gap BUN Creatinine Est GFR ( Amer) Glucose Lactic Acid Calcium Ferritin Total Bilirubin AST Alkaline Phosphatase C-Reactive Protein Total Protein Albumin PTH Intact Urine Color YELLOW Urine Appearance SLIGHTLY-CLOUDY Urine pH 5.0 Ur Specific [place] 1.043 Urine Protein 30 H Urine Glucose (UA) >=500 H Urine Ketones NEGATIVE Urine Blood NEGATIVE Urine RBC (Auto) 6 04/07/20 04/07/20 04/07/20 00:26 02:33 02:33 Creatine Kinase 87 CK-MB (CK-2) 0.41 Troponin I 0.015 0.026 NT-Pro-B Natriuret Pep 186 H 184 H Impressions: Chest X-Ray 04/07/20 00:26 IMPRESSION: Radiographic findings concerning for multifocal pneumonia as described above. Chest/Abdomen CTA 04/07/20 01:46 IMPRESSION: Negative for pulmonary embolism. Extensive interstitial and alveolar opacities throughout the lungs concerning for multi lobar multifocal pneumonia. TECHNICAL DOCUMENTATION: Quality ID # 436: Final reports with documentation of one or more dose reduction techniques (e.g., Automated exposure control, adjustment of the mA and/or kV according to patient size, use of iterative reconstruction technique) copyright 2011 [employer]- All Rights Reserved Assessment & Plan - Diagnosis (1) Acute hypoxemic respiratory failure Is this a current diagnosis for this admission?: Yes Plan: She has acute hypoxemic respiratory failure, patient on noninvasive positive pressure ventilation, she has underlining chronic other lung disease Initial setting of BiPAP IPAP 15, EPAP 8, FiO2 90% (2) Multifocal pneumonia Is this a current diagnosis for this admission?: Yes Plan: She has very dense consolidation of the left lung, consistent with bacterial pneumonia, this is less likely to be SARS-CoV-2 infection she has underlining chronic lung disease/COPD, she will be treated with triple antibiotic including Levaquin, cefepime and vancomycin this will cover all potential pathogens especially for community-acquired pathogens, will continue to evaluate patient for antibiotic response (3) Type 2 diabetes mellitus with diabetic polyneuropathy Qualifiers: Diabetes mellitus ferry terminal supervisor insulin use: without ferry terminal supervisor use Qualified Code(s): E11.42 - Type 2 diabetes mellitus with diabetic polyneuropathy Is this a current diagnosis for this admission?: Yes Plan: She has type 2 diabetes, start insulin, Lantus, Accu-Chek q.ACHS - Time Time Spent: Greater than 70 Minutes Critical Time spent with patient: 35 or more minutes Medications reviewed and adjusted accordingly: Yes Anticipated Discharge Disposition: Home, Self Care Anticipated Discharge Timeframe: 7 DAYS - Inpatient Certification Based on my medical assessment, after consideration of the patient's comorbidities, presenting symptoms, or acuity I expect that the services needed warrant INPATIENT care.: Yes I certify that my determination is in accordance with my understanding of Medicare's requirements for reasonable and necessary INPATIENT services [42 CFR 412.3e].: Yes Medical Necessity: Failure to Improve With Outpatient Therapy, Significant Comorbidiites Make Outpatient Treatment Too Risky, Need For IV Fluids, Need For Continuous Telemetry Monitoring, Need for Nebulizer Therapy and Monitoring of Response, Need for IV Antibiotics
[2020-04-07] MEDS ORDERED: [UNRECOGNIZED DRUG - OTHER] PO SCH (20:30)
[2020-04-07 21:42] LABS: ANION GAP 8 (5-19); BLOOD UREA NITROGEN 35 mg/dL (7-20); CARBON DIOXIDE 31 mmol/L (22-30); CHLORIDE 97 mmol/L (98-107); GLUCOSE 278 mg/dL (75-110)
[2020-04-07] MEDS ORDERED: INSULIN GLARGINE,HUM.REC.ANLOG 1,000 UNIT/10 ML VIAL SUBCUT SCH (22:00)
[2020-04-07] MEDS ORDERED: INSULIN GLARGINE,HUM.REC.ANLOG 1,000 UNIT/10 ML VIAL (PYX) SUBCUT ONE ×2 (22:30)
[2020-04-07] MEDS: VANCOMYCIN HCL 1,500 MG in DEXTROSE 5%-WATER 250 ML IV SCH (22:34)
[2020-04-07] MEDS: ENOXAPARIN SODIUM INJ 40 MG/0.4 ML DISP.SYRIN SUBCUT SCH (22:35)
[2020-04-07] MEDS: ATORVASTATIN CALCIUM 40 MG TABLET PO SCH (22:35)
[2020-04-07] MEDS: TEMAZEPAM 7.5 MG CAPSULE PO PRN (23:42)
[2020-04-08 01:26] LABS: ANION GAP 8 (5-19); BLOOD UREA NITROGEN 33 mg/dL (7-20); CALCIUM 8.3 mg/dL (8.4-10.2); CARBON DIOXIDE 33 mmol/L (22-30); CHLORIDE 97 mmol/L (98-107); GLUCOSE 277 mg/dL (75-110); POTASSIUM 4.7 mmol/L (3.6-5.0)
[2020-04-08] MEDS: RINGERS SOLUTION,LACTATED 1,000 ML IV PRN (04:57)
[2020-04-08] MEDS: CEFEPIME HCL 2 GM in DEXTROSE 5%-WATER 50 ML IV SCH ×2 (05:58→17:23)
[2020-04-08] MEDS: LEVOFLOXACIN 750 MG/D5W RTU 750 MG/150 ML RTUPB IV SCH (05:59)
[2020-04-08 06:23] LABS: HEMATOCRIT 28.9 % (36.0-47.0); HEMOGLOBIN 8.9 g/dL (12.0-15.5); MEAN CORPUSCULAR HEMOGLOBIN 23.3 pg (27.0-33.4); MEAN CORPUSCULAR HGB CONC 30.9 g/dL (32.0-36.0); MEAN CORPUSCULAR VOLUME 75 fl (80-97); PLATELET COUNT 481 10^3/uL (150-450); RED BLOOD COUNT 3.84 10^6/uL (3.72-5.28); RED CELL DISTRIBUTION WIDTH 17.7 % (11.5-14.0); WHITE BLOOD COUNT 14.5 10^3/uL (4.0-10.5)
[2020-04-08 06:37] LABS: ALBUMIN 2.9 g/dL (3.5-5.0); ALKALINE PHOSPHATASE 71 U/L (38-126); ANION GAP 6 (5-19); ASPARTATE AMINO TRANSFERASE 37 U/L (14-36); BILIRUBIN,DIRECT 0.2 mg/dL (0.0-0.4); BILIRUBIN,TOTAL 0.3 mg/dL (0.2-1.3); BLOOD UREA NITROGEN 31 mg/dL (7-20); CALCIUM 8.1 mg/dL (8.4-10.2); CARBON DIOXIDE 34 mmol/L (22-30); CHLORIDE 96 mmol/L (98-107); GLUCOSE 256 mg/dL (75-110); POTASSIUM 5.1 mmol/L (3.6-5.0); TOTAL PROTEIN 5.8 g/dL (6.3-8.2)
[2020-04-08 06:51] LABS: ABSOLUTE MONOCYTES # (MANUAL) 1.3 10^3/uL (0.1-1.4); BAND NEUTROPHILS % (MANUAL) 2 % (3-5); BASOPHILS % (MANUAL) 0 % (0-2); EOSINOPHILS % (MANUAL) 0 % (0-6); LYMPHOCYTES % (MANUAL) 7 % (13-45); MONOCYTES % (MANUAL) 9 % (3-13); SEGMENTED NEUTROPHILS % (MAN) 82 % (42-78); TOTAL CELLS COUNTED 100
[2020-04-08 06:52] LABS: ANISOCYTOSIS 2+; OVALOCYTES 1+; PLATELET COMMENT INCREASED; POIKILOCYTOSIS 1+
[2020-04-08] MEDS: IPRATROPIUM/ALBUTEROL 0.5-2.5 MG/3 ML AMPUL NEB SCH ×4 (08:01→20:19)
[2020-04-08] MEDS: INSULIN LISPRO 100 UNIT/ML 3 ML VIAL SUBCUT SCH ×4 (08:42→22:39)
[2020-04-08] MEDS ORDERED: METHYLPREDNISOLONE INJ 125 MG/2 ML SDV ONE ×2 (09:17→09:21)
[2020-04-08] MEDS ORDERED: IPRATROPIUM/ALBUTEROL 0.5-2.5 MG/3 ML AMPUL NEB ONE ×3 (09:26→15:30)
[2020-04-08] MEDS ORDERED: METHYLPREDNISOLONE INJ 125 MG/2 ML SDV IV ONE (09:30)
[2020-04-08 09:32] LABS: HEMATOCRIT 29.9 % (36.0-47.0); HEMOGLOBIN 9.3 g/dL (12.0-15.5); MEAN CORPUSCULAR HEMOGLOBIN 23.3 pg (27.0-33.4); MEAN CORPUSCULAR HGB CONC 31.2 g/dL (32.0-36.0); MEAN CORPUSCULAR VOLUME 75 fl (80-97); PLATELET COUNT 476 10^3/uL (150-450); RED CELL DISTRIBUTION WIDTH 17.6 % (11.5-14.0); WHITE BLOOD COUNT 15.3 10^3/uL (4.0-10.5)
[2020-04-08] MEDS ORDERED: MAGNESIUM SULFATE/D5W 2 GM/200 ML RTUPB IV ONE (09:36)
[2020-04-08] MEDS: MAGNESIUM SULFATE/D5W 1 GM/100 ML RTUPB IV PRN ×2 (09:39→10:03)
[2020-04-08 09:48] LABS: ARTERIAL BLOOD BASE EXCESS 3.8 mmol/L; ARTERIAL BLOOD H2CO3 1.55 mmol/L (1.05-1.35); ARTERIAL BLOOD HCO3 29.7 mmol/L (20-24); ARTERIAL BLOOD O2 SATURATION 79.5 % (94-98); ARTERIAL BLOOD PCO2 51.6 mmHg (35-45); ARTERIAL BLOOD PH 7.38 (7.35-7.45); ARTERIAL BLOOD PO2 45.1 mmHg (80-100); ARTERIAL BLOOD TOTAL CO2 31.3 mmol/L (21-25)
--- NOTE | 2020-04-08 09:48 | RADIOLOGY REPORT (SQ) ---
EXAM DESCRIPTION: CHEST SINGLE VIEW IMAGES COMPLETED DATE/TIME: 04/08/2020 8:37 am REASON FOR STUDY: pneumonia COMPARISON: CT angio chest 04/07/2020 AP chest 04/07/2020 EXAM PARAMETERS: NUMBER OF VIEWS: One view. TECHNIQUE: Single frontal radiographic view of the chest acquired. RADIATION DOSE: NA LIMITATIONS: Portable film, large patient FINDINGS: LUNGS AND PLEURA: No change in dense consolidation along the periphery of both lungs right greater than left. No gross pleural effusion or pneumothorax. MEDIASTINUM AND HILAR STRUCTURES: No masses. Contour normal. HEART AND VASCULAR STRUCTURES: No gross cardiomegaly BONES: No acute findings. HARDWARE: None in the chest. OTHER: No other significant finding. IMPRESSION: No change in dense consolidation along the periphery of both lungs right greater than le ft. TECHNICAL DOCUMENTATION: JOB ID: [id number] 2010 [employer]- All Rights Reserved Reading location - IP/workstation name: [email or web address]
[2020-04-08 09:49] LABS: ARTERIAL BLOOD FIO2 100%
[2020-04-08] MEDS ORDERED: FUROSEMIDE INJ/PF 40 MG/4 ML SDV ONE (09:50)
[2020-04-08 09:52] LABS: ANION GAP 10 (5-19); BLOOD UREA NITROGEN 29 mg/dL (7-20); CALCIUM 8.3 mg/dL (8.4-10.2); CARBON DIOXIDE 34 mmol/L (22-30); CHLORIDE 95 mmol/L (98-107); GLUCOSE 279 mg/dL (75-110); POTASSIUM 5.1 mmol/L (3.6-5.0)
[2020-04-08] MEDS ORDERED: FUROSEMIDE INJ/PF 40 MG/4 ML SDV IV ONE (09:52)
[2020-04-08 09:56] LABS: ABSOLUTE LYMPHOCYTES# (MANUAL) 1.1 10^3/uL (0.5-4.7); ABSOLUTE MONOCYTES # (MANUAL) 0.8 10^3/uL (0.1-1.4); ANISOCYTOSIS 1+; BASOPHILS % (MANUAL) 0 % (0-2); EOSINOPHILS % (MANUAL) 0 % (0-6); LYMPHOCYTES % (MANUAL) 7 % (13-45); MONOCYTES % (MANUAL) 5 % (3-13); SEGMENTED NEUTROPHILS % (MAN) 88 % (42-78); TOTAL CELLS COUNTED 100
[2020-04-08 09:57] LABS: HYPOCHROMASIA 2+; PLATELET COMMENT INCREASED; POLYCHROMASIA SLIGHT
[2020-04-08 09:58] LABS: OVALOCYTES SLIGHT; POIKILOCYTOSIS SLIGHT
[2020-04-08] MEDS: VANCOMYCIN HCL 1,500 MG in DEXTROSE 5%-WATER 250 ML IV SCH ×2 (10:16→22:41)
[2020-04-08 11:17] LABS: APPEARANCE,URINE CLEAR; BILIRUBIN,URINE NEGATIVE (NEGATIVE); COLOR,URINE COLORLESS; GLUCOSE, URINE NEGATIVE (NEGATIVE); KETONES,URINE NEGATIVE (NEGATIVE); LEUKOCYTE ESTERASE,URINE TRACE (NEGATIVE); NITRITE,URINE NEGATIVE (NEGATIVE); PROTEIN,URINE NEGATIVE (NEGATIVE); URINE SPECIFIC GRAVITY 1.006; UROBILINOGEN,URINE NEGATIVE mg/dL (<2.0)
--- NOTE | 2020-04-08 12:29 | EKG REPORT ---
SEVERITY:- OTHERWISE NORMAL ECG - SINUS TACHYCARDIA : Confirmed by: Edin Hickman MD 08-Apr-2020 12:28:52
[2020-04-08 12:40] LABS: ARTERIAL BLOOD BASE EXCESS 5.3 mmol/L; ARTERIAL BLOOD H2CO3 1.54 mmol/L (1.05-1.35); ARTERIAL BLOOD HCO3 30.9 mmol/L (20-24); ARTERIAL BLOOD O2 SATURATION 84.3 % (94-98); ARTERIAL BLOOD PCO2 51.1 mmHg (35-45); ARTERIAL BLOOD PO2 49.3 mmHg (80-100); ARTERIAL BLOOD TOTAL CO2 32.5 mmol/L (21-25)
[2020-04-08 12:42] LABS: ARTERIAL BLOOD FIO2 100%
--- NOTE | 2020-04-08 13:33 | PDOC CRITICAL CARE PROG REPORT ---
General Date:: 04/08/20 Hospital Day:: 2 Resuscitation Status: Full Code Events in the past 12 to 24 Hours:: Dense Pneumonia activating COPD Review of systems relevant to events:: Pulmonary Reason for ICU Addmission:: Evaluation. - Medications: Medications reviewed and adjusted accordingly: Yes Vasopressors:: None Sedation:: None Physical Exam Vital Signs: Temp Pulse Resp BP Pulse Ox 97.3 F 116 H 29 H 146/85 H 83 L 04/08/20 10:00 04/08/20 12:00 04/08/20 12:00 04/08/20 07:46 04/08/20 12:00 Intake & Output 04/07/20 04/08/20 04/09/20 06:59 06:59 06:59 Intake Total 1250 1910 40 Output Total 2150 Balance 1250 -240 40 Weight 132.6 kg 134.4 kg Weight/Height Weight 134.4 kg Height 5 ft 9 in General appearance: PRESENT: mild distress Head exam: PRESENT: atraumatic, normocephalic Eye exam: PRESENT: conjunctiva pink, EOMI, PERRLA. ABSENT: scleral icterus Ear exam: PRESENT: normal external ear exam Mouth exam: PRESENT: moist, tongue midline Respiratory exam: PRESENT: accessory muscle use, clear to auscultation abigail, other - Tripoding some. No wheezing but lungs do sound tight.. ABSENT: rales, rhonchi, wheezes Cardiovascular exam: PRESENT: RRR, tachycardia. ABSENT: diastolic murmur, rubs, systolic murmur GI/Abdominal exam: PRESENT: normal bowel sounds, soft. ABSENT: distended, guarding, mass, organolmegaly, rebound, tenderness Rectal exam: PRESENT: deferred Extremities exam: PRESENT: full ROM. ABSENT: calf tenderness, clubbing, pedal edema Musculoskeletal exam: PRESENT: normal inspection Neurological exam: PRESENT: alert, awake, oriented to person, oriented to place, oriented to time, oriented to situation, CN II-XII grossly intact. ABSENT: motor sensory deficit Psychiatric exam: PRESENT: anxious Skin exam: PRESENT: dry, intact, warm. ABSENT: cyanosis, rash Tubes/Lines: PRESENT: Other - Bipap. Laboratory/Radiographs Laboratory Results: 04/08/20 09:23 04/08/20 08:54 04/07/20 04/08/20 04/08/20 21:12 01:01 05:45 WBC 14.5 H RBC 3.84 Hgb 8.9 L Hct 28.9 L MCV 75 L MCH 23.3 L MCHC 30.9 L RDW 17.7 H Plt Count 481 H Seg Neutrophils % Not Reportable Carbonic Acid HCO3/H2CO3 Ratio ABG pH ABG pCO2 ABG pO2 ABG HCO3 ABG O2 Saturation ABG Base Excess FiO2 Sodium 135.9 L 137.8 Potassium 5.0 4.7 Chloride 97 L 97 L Carbon Dioxide 31 H 33 H Anion Gap 8 8 BUN 35 H 33 H Creatinine 0.97 0.98 Est GFR ( Amer) > 60 > 60 Glucose 278 H 277 H Lactic Acid Calcium 8.0 L 8.3 L Total Bilirubin AST Alkaline Phosphatase Total Protein Albumin Urine Color Urine Appearance Urine pH Ur Specific [place] Urine Protein Urine Glucose (UA) Urine Ketones Urine Blood Urine Nitrite Ur Leukocyte Esterase Urine WBC (Auto) Urine RBC (Auto) 04/08/20 04/08/20 04/08/20 05:45 08:54 09:10 WBC RBC Hgb Hct MCV MCH MCHC RDW Plt Count Seg Neutrophils % Carbonic Acid 1.55 H HCO3/H2CO3 Ratio 19:1 ABG pH 7.38 ABG pCO2 51.6 H ABG pO2 45.1 L ABG HCO3 29.7 H ABG O2 Saturation 79.5 L ABG Base Excess 3.8 FiO2 100% Sodium 135.8 L 138.8 Potassium 5.1 H 5.1 H Chloride 96 L 95 L Carbon Dioxide 34 H 34 H Anion Gap 6 10 BUN 31 H 29 H Creatinine 0.87 0.82 Est GFR ( Amer) > 60 > 60 Glucose 256 H 279 H Lactic Acid Calcium 8.1 L 8.3 L Total Bilirubin 0.3 AST 37 H Alkaline Phosphatase 71 Total Protein 5.8 L Albumin 2.9 L Urine Color Urine Appearance Urine pH Ur Specific [place] Urine Protein Urine Glucose (UA) Urine Ketones Urine Blood Urine Nitrite Ur Leukocyte Esterase Urine WBC (Auto) Urine RBC (Auto) 04/08/20 04/08/20 04/08/20 09:23 09:23 10:50 WBC 15.3 H RBC 4.00 Hgb 9.3 L Hct 29.9 L MCV 75 L MCH 23.3 L MCHC 31.2 L RDW 17.6 H Plt Count 476 H Seg Neutrophils % Not Reportable Carbonic Acid HCO3/H2CO3 Ratio ABG pH ABG pCO2 ABG pO2 ABG HCO3 ABG O2 Saturation ABG Base Excess FiO2 Sodium Potassium Chloride Carbon Dioxide Anion Gap BUN Creatinine Est GFR ( Amer) Glucose Lactic Acid 1.0 Calcium Total Bilirubin AST Alkaline Phosphatase Total Protein Albumin Urine Color COLORLESS Urine Appearance CLEAR Urine pH 5.0 Ur Specific [place] 1.006 Urine Protein NEGATIVE Urine Glucose (UA) NEGATIVE Urine Ketones NEGATIVE Urine Blood SMALL H Urine Nitrite NEGATIVE Ur Leukocyte Esterase TRACE H Urine WBC (Auto) 7 Urine RBC (Auto) 1 04/08/20 12:14 WBC RBC Hgb Hct MCV MCH MCHC RDW Plt Count Seg Neutrophils % Carbonic Acid 1.54 H HCO3/H2CO3 Ratio 20:1 ABG pH 7.40 ABG pCO2 51.1 H ABG pO2 49.3 L ABG HCO3 30.9 H ABG O2 Saturation 84.3 L ABG Base Excess 5.3 FiO2 100% Sodium Potassium Chloride Carbon Dioxide Anion Gap BUN Creatinine Est GFR ( Amer) Glucose Lactic Acid Calcium Total Bilirubin AST Alkaline Phosphatase Total Protein Albumin Urine Color Urine Appearance Urine pH Ur Specific [place] Urine Protein Urine Glucose (UA) Urine Ketones Urine Blood Urine Nitrite Ur Leukocyte Esterase Urine WBC (Auto) Urine RBC (Auto) 04/07/20 04/07/20 04/07/20 00:26 02:33 02:33 Creatine Kinase 87 CK-MB (CK-2) 0.41 Troponin I 0.015 0.026 NT-Pro-B Natriuret Pep 186 H 184 H 04/08/20 09:23 Creatine Kinase CK-MB (CK-2) Troponin I 0.016 NT-Pro-B Natriuret Pep Impressions: Chest/Abdomen CTA 04/07/20 01:46 IMPRESSION: Negative for pulmonary embolism. Extensive interstitial and alveolar opacities throughout the lungs concerning for multi lobar multifocal pneumonia. TECHNICAL DOCUMENTATION: Quality ID # 436: Final reports with documentation of one or more dose reduction techniques (e.g., Automated exposure control, adjustment of the mA and/or kV according to patient size, use of iterative reconstruction technique) copyright 2011 [employer]- All Rights Reserved Chest X-Ray 04/08/20 00:00 IMPRESSION: No change in dense consolidation along the periphery of both lungs right greater than left. All labs, radiographs, diagnostic studies and EKGs were personally reviewed: Yes In addition, reports of radiographic and diagnostic studies were read: Yes Assessment and Plan - Diagnosis (1) Multifocal pneumonia Is this a current diagnosis for this admission?: Yes Plan: The patient has not been nauseous so aspiration is not likely. The infiltrates involve the RUL which takes a rather acute turn into the lobe and is difficult to effect with an aspiration. This is likely a CAP and her antibiotic coverage is good no change. (2) COPD exacerbation Is this a current diagnosis for this admission?: Yes Plan: She has COPD and this pneumonia is not helping. She is not wheezing but does sound tight. She needs steroids. She received 125mg solumedrol this AM. The IV is infiltrated so hopefully she received it. She needs scheduled steroids. She also is on CPAP. Bipap is often helpful for COPD. However she is only mildly hypercarbic and her pH is normal. There is a compensation beginning with her bicarb. All this may take a few hours to sort out during which time we will watch with you. Should she decompensate she is willing to accept an ETT and ICU placement. For now she can be treated on the 5th floor pending improvement. Plan Summary: Let steroids, lasix, and bipap see if they can improve oxygenation and comfort. Critical Time Critical Time (minutes): 35 Level of Care: MEDICAL Anticipated discharge: Other Anticipated DC Timeframe: Other -: 1. The care of a critical patient is a dynamic process. This note is a passenger representative synopsis but static in nature. The timeframe for treatments given in order is not necessarily the actual time these treatments may have been done. 2. This patient requires critical care secondary to ongoing requirements for therapy not offered or safe outside the critical care environment. Transfer to a lower level of care will result in altered life or limb morbidity and mortality. 3. Multidisciplinary rounds completed. 4. ABCDE bundle addressed.
--- NOTE | 2020-04-08 15:06 | PDOC PROGRESS REPORT ---
Subjective Date:: 04/08/20 Subjective:: Patient seen by the bedside, she continues to require noninvasive positive press ure ventilation, BiPAP, the most recent ABG demonstrated increased PCO2 suggesting impending acute hypercapnic respiratory failure, ICU consulted for transfer Reason For Visit: PNEUMONIA,T2DM,COPD Physical Exam Vital Signs: Temp Pulse Resp BP Pulse Ox 97.3 F 116 H 29 H 146/85 H 83 L 04/08/20 10:00 04/08/20 12:00 04/08/20 12:00 04/08/20 07:46 04/08/20 12:00 Intake & Output 04/07/20 04/08/20 04/09/20 06:59 06:59 06:59 Intake Total 1250 1910 40 Output Total 2150 800 Balance 1250 -240 -760 Weight 132.6 kg 134.4 kg General appearance: PRESENT: other - Patient is alert on BiPAP Eye exam: PRESENT: PERRLA Respiratory exam: PRESENT: wheezes Cardiovascular exam: PRESENT: +S1, +S2 GI/Abdominal exam: PRESENT: soft Neurological exam: PRESENT: alert, CN II-XII grossly intact Results Laboratory Results: 04/08/20 09:23 04/08/20 08:54 04/07/20 04/08/20 04/08/20 21:12 01:01 05:45 WBC 14.5 H RBC 3.84 Hgb 8.9 L Hct 28.9 L MCV 75 L MCH 23.3 L MCHC 30.9 L RDW 17.7 H Plt Count 481 H Seg Neutrophils % Not Reportable Carbonic Acid HCO3/H2CO3 Ratio ABG pH ABG pCO2 ABG pO2 ABG HCO3 ABG O2 Saturation ABG Base Excess FiO2 Sodium 135.9 L 137.8 Potassium 5.0 4.7 Chloride 97 L 97 L Carbon Dioxide 31 H 33 H Anion Gap 8 8 BUN 35 H 33 H Creatinine 0.97 0.98 Est GFR ( Amer) > 60 > 60 Glucose 278 H 277 H Lactic Acid Calcium 8.0 L 8.3 L Total Bilirubin AST Alkaline Phosphatase Total Protein Albumin Urine Color Urine Appearance Urine pH Ur Specific [place] Urine Protein Urine Glucose (UA) Urine Ketones Urine Blood Urine Nitrite Ur Leukocyte Esterase Urine WBC (Auto) Urine RBC (Auto) 04/08/20 04/08/20 04/08/20 05:45 08:54 09:10 WBC RBC Hgb Hct MCV MCH MCHC RDW Plt Count Seg Neutrophils % Carbonic Acid 1.55 H HCO3/H2CO3 Ratio 19:1 ABG pH 7.38 ABG pCO2 51.6 H ABG pO2 45.1 L ABG HCO3 29.7 H ABG O2 Saturation 79.5 L ABG Base Excess 3.8 FiO2 100% Sodium 135.8 L 138.8 Potassium 5.1 H 5.1 H Chloride 96 L 95 L Carbon Dioxide 34 H 34 H Anion Gap 6 10 BUN 31 H 29 H Creatinine 0.87 0.82 Est GFR ( Amer) > 60 > 60 Glucose 256 H 279 H Lactic Acid Calcium 8.1 L 8.3 L Total Bilirubin 0.3 AST 37 H Alkaline Phosphatase 71 Total Protein 5.8 L Albumin 2.9 L Urine Color Urine Appearance Urine pH Ur Specific [place] Urine Protein Urine Glucose (UA) Urine Ketones Urine Blood Urine Nitrite Ur Leukocyte Esterase Urine WBC (Auto) Urine RBC (Auto) 04/08/20 04/08/20 04/08/20 09:23 09:23 10:50 WBC 15.3 H RBC 4.00 Hgb 9.3 L Hct 29.9 L MCV 75 L MCH 23.3 L MCHC 31.2 L RDW 17.6 H Plt Count 476 H Seg Neutrophils % Not Reportable Carbonic Acid HCO3/H2CO3 Ratio ABG pH ABG pCO2 ABG pO2 ABG HCO3 ABG O2 Saturation ABG Base Excess FiO2 Sodium Potassium Chloride Carbon Dioxide Anion Gap BUN Creatinine Est GFR ( Amer) Glucose Lactic Acid 1.0 Calcium Total Bilirubin AST Alkaline Phosphatase Total Protein Albumin Urine Color COLORLESS Urine Appearance CLEAR Urine pH 5.0 Ur Specific [place] 1.006 Urine Protein NEGATIVE Urine Glucose (UA) NEGATIVE Urine Ketones NEGATIVE Urine Blood SMALL H Urine Nitrite NEGATIVE Ur Leukocyte Esterase TRACE H Urine WBC (Auto) 7 Urine RBC (Auto) 1 04/08/20 12:14 WBC RBC Hgb Hct MCV MCH MCHC RDW Plt Count Seg Neutrophils % Carbonic Acid 1.54 H HCO3/H2CO3 Ratio 20:1 ABG pH 7.40 ABG pCO2 51.1 H ABG pO2 49.3 L ABG HCO3 30.9 H ABG O2 Saturation 84.3 L ABG Base Excess 5.3 FiO2 100% Sodium Potassium Chloride Carbon Dioxide Anion Gap BUN Creatinine Est GFR ( Amer) Glucose Lactic Acid Calcium Total Bilirubin AST Alkaline Phosphatase Total Protein Albumin Urine Color Urine Appearance Urine pH Ur Specific [place] Urine Protein Urine Glucose (UA) Urine Ketones Urine Blood Urine Nitrite Ur Leukocyte Esterase Urine WBC (Auto) Urine RBC (Auto) 04/07/20 04/07/20 04/07/20 00:26 02:33 02:33 Creatine Kinase 87 CK-MB (CK-2) 0.41 Troponin I 0.015 0.026 NT-Pro-B Natriuret Pep 186 H 184 H 04/08/20 09:23 Creatine Kinase CK-MB (CK-2) Troponin I 0.016 NT-Pro-B Natriuret Pep Impressions: Chest/Abdomen CTA 04/07/20 01:46 IMPRESSION: Negative for pulmonary embolism. Extensive interstitial and alveolar opacities throughout the lungs concerning for multi lobar multifocal pneumonia. TECHNICAL DOCUMENTATION: Quality ID # 436: Final reports with documentation of one or more dose reduction techniques (e.g., Automated exposure control, adjustment of the mA and/or kV according to patient size, use of iterative reconstruction technique) copyright 2011 [employer]- All Rights Reserved Chest X-Ray 04/08/20 00:00 IMPRESSION: No change in dense consolidation along the periphery of both lungs right greater than left. Assessment & Plan - Diagnosis (1) Acute hypoxemic respiratory failure Is this a current diagnosis for this admission?: Yes Plan: Patient continues to require noninvasive positive pressure ventilation, BiPAP (2) Multifocal pneumonia Is this a current diagnosis for this admission?: Yes Plan: She has multifocal pneumonia very dense consolidation the left middle lobe, presently on triple antibiotic, continue same (3) Type 2 diabetes mellitus with diabetic polyneuropathy Qualifiers: Diabetes mellitus skilled nursing insulin use: without skilled nursing use Qualified Code(s): E11.42 - Type 2 diabetes mellitus with diabetic polyneuropathy Is this a current diagnosis for this admission?: Yes Plan: Patient may require insulin drip if serum glucose remains persistently elevated (4) COPD exacerbation Is this a current diagnosis for this admission?: Yes Plan: The joint cutter recommend steroid I am somewhat resistant to initiate steroid this patient with very dense bacterial pneumonia, we will give 60 mg Solu-Medrol - Time Time Spent with patient: 35 or more minutes Total Critical Time (Minutes): 30 Level of Care: IMCU Medications reviewed and adjusted accordingly: Yes Anticipated discharge: Home Anticipated DC Timeframe: within 72 hours - Inpatient Certification Based on my medical assessment, after consideration of the patient's c omorbidities, presenting symptoms, or acuity I expect that the services needed warrant INPATIENT care.: Yes I certify that my determination is in accordance with my understanding of Medicare's requirements for reasonable and necessary INPATIENT services [42 CFR 412.3e].: Yes
[2020-04-08] MEDS: METHYLPREDNISOLONE INJ 40 MG/1 ML SDV IV SCH ×2 (15:32→22:37)
--- NOTE | 2020-04-08 15:54 | Progress Note ---
Provider Note Provider Note: With settings adjusted on bipap. She looks more comfortable. O2 sats in high 80s to 90%, although she says subjectively she feels the same. Will leave treatment as is and check later today.
[2020-04-08 16:12] LABS: ALBUMIN 3.1 g/dL (3.5-5.0); ALKALINE PHOSPHATASE 78 U/L (38-126); ANION GAP 8 (5-19); ASPARTATE AMINO TRANSFERASE 35 U/L (14-36); BILIRUBIN,DIRECT 0.2 mg/dL (0.0-0.4); BILIRUBIN,TOTAL 0.3 mg/dL (0.2-1.3); BLOOD UREA NITROGEN 29 mg/dL (7-20); CARBON DIOXIDE 33 mmol/L (22-30); CHLORIDE 93 mmol/L (98-107); GLUCOSE 392 mg/dL (75-110); POTASSIUM 4.7 mmol/L (3.6-5.0)
[2020-04-08] MEDS ORDERED: NORMAL SALINE INJ/PF 0.9% 10 ML SDV IV PRN (16:30)
--- NOTE | 2020-04-08 16:31 | RADIOLOGY REPORT (SQ) ---
EXAM DESCRIPTION: PICC INSERTION IMAGES COMPLETED DATE/TIME: 04/08/2020 4:21 pm REASON FOR STUDY: need IV access for insulin drip COMPARISON: None. FLUOROSCOPY TIME: None 3 portable chest images saved to PACS. TECHNIQUE: ultrasound guided PICC placement at bedside. LIMITATIONS: None. PROCEDURE: After written consent and assessment were obtained, Ultrasound evaluation of potential ac cess sites were performed. After successfully identifying a patent left basilic vein, the left arm wa s prepped and draped in a sterile fashion along with the ultrasound probe. The entry site was anesthe tized with 1% lidocaine. A 21 gauge 7 cm needle was advanced through the skin and into the basilic ve in under live ultrasound guidance. An ultrasound image was saved to PACS confirming access site. A .018 guide wire was then inserted through the needle and into the venous system. The needle was then removed and an 11 blade scalpel was used to make a 1cm skin incision. A 5 fr peel-away sheath was ad vanced over the wire and into the venous system. A measurement was then made using the existing wire. The wire was then removed and catheter was trimmed. The PICC was advanced through the peel-away she ath and into the venous system. The peel-away sheath was removed and the catheter was adhered to the patients arm with a stat lock. The catheter was then aspirated and flushed and a sterile bandage was placed over the access site. Portable chest image was saved to PACS confirming the catheter tip with in the superior vena cava. IMPRESSION: SUCCESSFUL PLACEMENT OF A 5 FR DUAL LUMEN 44 CM PICC IN THE LEFT BASILIC VEIN. COMMENT: Patient medication list reviewed: Yes- Quality ID# 130:Eligible professional attests to doc umenting in the medical record they obtained, updated, or reviewed the patient's current medications. . Quality ID 145: Final reports for procedures using fluoroscopy that document radiation exposure chidi kamlesh, or exposure time and number of fluorographic images (if radiation exposure indices are not avail able) Quality ID #76: The patient was prepped and draped using maximum sterile barrier technique including cap, mask, sterile gown, sterile gloves, a large sterile sheet, hand hygiene, and 2% Chlorhexidine fo r cutaneous antisepsis. When ultrasound is used, sterile ultrasound techniques are followed requiring sterile gel and sterile probes. TECHNICAL DOCUMENTATION: JOB ID: [id number] 2010 [employer] All Rights Reserved rev-08/04 Reading location - IP/workstation name: [email or web address]
[2020-04-08 17:26] LABS: BLOOD UREA NITROGEN 27 mg/dL (7-20); CARBON DIOXIDE 36 mmol/L (22-30); CHLORIDE 93 mmol/L (98-107); POTASSIUM 4.9 mmol/L (3.6-5.0)
[2020-04-08 17:32] LABS: GLUCOSE 398 mg/dL (75-110)
[2020-04-08 17:43] LABS: ANION GAP 4 (5-19)
--- NOTE | 2020-04-08 18:33 | Progress Note ---
Provider Note Provider Note: E [employer] [facility] was called at around 9 am for desaturation. Patient was found to be desaturating to high 70s with 100% FIO2 BIPAP. History reviewed. Physical exam findings showed stable BP, Hr 90s adn O2 sat 83% on Bipap. Chest sounds revealed mild wheezing. 2 rounds of duoneb ordered with minimal change in O2 sat. I ordered 1 dose of magnesium sulfate 2 g IV and also 1 dose of lasix given as well. repeat CXR essentially showed pneumonia with consolidation. Patient was switched to CPAP 14 and this improved her sats to low 90s. WALLACE patiño called Dr. Newby to update him of patients condition. >35 mins was spent for the care of this critically ill patient.
[2020-04-08] MEDS: ATORVASTATIN CALCIUM 40 MG TABLET PO SCH (22:40)
[2020-04-08] MEDS: ENOXAPARIN SODIUM INJ 40 MG/0.4 ML DISP.SYRIN SUBCUT SCH (22:40)
[2020-04-08] MEDS: NORMAL SALINE INJ/PF 0.9% 10 ML SDV IV SCH (22:43)
[2020-04-08] MEDS ORDERED: INSULIN REG, HUMAN 100 UNIT/ML 3 ML VIAL (PYX) ONE (23:02)
[2020-04-08] MEDS: NORMAL SALINE 100 ML with INSULIN REGULAR, HUMAN 100 UNIT IV PRN ×2 (23:47)
[2020-04-09 01:24] LABS: ANION GAP 6 (5-19); BLOOD UREA NITROGEN 30 mg/dL (7-20); CARBON DIOXIDE 33 mmol/L (22-30); CHLORIDE 94 mmol/L (98-107)
[2020-04-09 01:32] LABS: GLUCOSE 441 mg/dL (75-110)
[2020-04-09] MEDS: CEFEPIME HCL 2 GM in DEXTROSE 5%-WATER 50 ML IV SCH ×2 (05:47→17:27)
[2020-04-09] MEDS: LEVOFLOXACIN 750 MG/D5W RTU 750 MG/150 ML RTUPB IV SCH (05:48)
[2020-04-09 05:59] LABS: ALBUMIN 2.9 g/dL (3.5-5.0); ALKALINE PHOSPHATASE 81 U/L (38-126); ASPARTATE AMINO TRANSFERASE 34 U/L (14-36); BILIRUBIN,DIRECT 0.3 mg/dL (0.0-0.4); BILIRUBIN,TOTAL 0.4 mg/dL (0.2-1.3); BLOOD UREA NITROGEN 29 mg/dL (7-20); CALCIUM 8.2 mg/dL (8.4-10.2); CARBON DIOXIDE 38 mmol/L (22-30); CHLORIDE 97 mmol/L (98-107); GLUCOSE 317 mg/dL (75-110); POTASSIUM 5.1 mmol/L (3.6-5.0); TOTAL PROTEIN 5.8 g/dL (6.3-8.2)
[2020-04-09] MEDS: METHYLPREDNISOLONE INJ 40 MG/1 ML SDV IV SCH ×3 (05:59→21:40)
[2020-04-09 06:07] LABS: HEMATOCRIT 26.5 % (36.0-47.0); HEMOGLOBIN 8.3 g/dL (12.0-15.5); MEAN CORPUSCULAR HEMOGLOBIN 23.5 pg (27.0-33.4); MEAN CORPUSCULAR HGB CONC 31.3 g/dL (32.0-36.0); MEAN CORPUSCULAR VOLUME 75 fl (80-97); PLATELET COUNT 488 10^3/uL (150-450); RED BLOOD COUNT 3.53 10^6/uL (3.72-5.28); RED CELL DISTRIBUTION WIDTH 17.4 % (11.5-14.0); WHITE BLOOD COUNT 17.1 10^3/uL (4.0-10.5)
[2020-04-09 06:34] LABS: ANION GAP 4 (5-19)
[2020-04-09 06:46] LABS: ABSOLUTE LYMPHOCYTES# (MANUAL) 0.5 10^3/uL (0.5-4.7); ABSOLUTE MONOCYTES # (MANUAL) 0.3 10^3/uL (0.1-1.4); BAND NEUTROPHILS % (MANUAL) 1 % (3-5); BASOPHILS % (MANUAL) 0 % (0-2); EOSINOPHILS % (MANUAL) 0 % (0-6); LYMPHOCYTES % (MANUAL) 3 % (13-45); MONOCYTES % (MANUAL) 2 % (3-13); SEGMENTED NEUTROPHILS % (MAN) 94 % (42-78); TOTAL CELLS COUNTED 100
[2020-04-09 06:53] LABS: ANISOCYTOSIS 1+; POLYCHROMASIA SLIGHT; TOXIC GRANULATION SLIGHT
[2020-04-09 06:54] LABS: OVALOCYTES SLIGHT; PLATELET COMMENT ADEQUATE; POIKILOCYTOSIS SLIGHT; TEAR DROP CELLS SLIGHT
[2020-04-09] MEDS: IPRATROPIUM/ALBUTEROL 0.5-2.5 MG/3 ML AMPUL NEB SCH ×4 (08:55→20:16)
[2020-04-09] MEDS: VANCOMYCIN HCL 1,500 MG in DEXTROSE 5%-WATER 250 ML IV SCH ×2 (10:01→21:40)
[2020-04-09] MEDS: NORMAL SALINE INJ/PF 0.9% 10 ML SDV IV SCH ×2 (10:02→21:40)
[2020-04-09] MEDS: INSULIN LISPRO 100 UNIT/ML 3 ML VIAL SUBCUT SCH ×4 (10:02→21:33)
[2020-04-09 10:56] LABS: VANCOMYCIN,TROUGH 10.8 ug/mL (5.0-20.0)
[2020-04-09 11:01] LABS: ANION GAP 8 (5-19); BLOOD UREA NITROGEN 32 mg/dL (7-20); CALCIUM 8.3 mg/dL (8.4-10.2); CARBON DIOXIDE 31 mmol/L (22-30); CHLORIDE 100 mmol/L (98-107); GLUCOSE 228 mg/dL (75-110); POTASSIUM 5.1 mmol/L (3.6-5.0)
[2020-04-09 14:05] LABS: ANION GAP 5 (5-19); BLOOD UREA NITROGEN 29 mg/dL (7-20); CALCIUM 8.1 mg/dL (8.4-10.2); CARBON DIOXIDE 37 mmol/L (22-30); CHLORIDE 97 mmol/L (98-107); GLUCOSE 234 mg/dL (75-110); POTASSIUM 5.1 mmol/L (3.6-5.0)
--- NOTE | 2020-04-09 15:09 | RADIOLOGY REPORT (SQ) ---
EXAM DESCRIPTION: CHEST SINGLE VIEW IMAGES COMPLETED DATE/TIME: 04/09/2020 2:55 pm REASON FOR STUDY: pneumonia COMPARISON: 04/08/2020 EXAM PARAMETERS: NUMBER OF VIEWS: One view. TECHNIQUE: Single frontal radiographic view of the chest acquired. RADIATION DOSE: NA LIMITATIONS: None. FINDINGS: LUNGS AND PLEURA: Stable pulmonary exam demonstrating diffuse, predominantly bibasilar air space opacities. Small pleural effusions may be present. No pneumothorax demonstrated. MEDIASTINUM AND HILAR STRUCTURES: No masses. Contour normal. HEART AND VASCULAR STRUCTURES: Heart normal in size. Normal vasculature. BONES: No acute findings. HARDWARE: Left upper extremity PICC, stable. OTHER: No other significant finding. IMPRESSION: Stable radiographic appearance of the chest demonstrating bibasilar airspace opacities a nd a left upper extremity PICC. TECHNICAL DOCUMENTATION: JOB ID: [id number] 2010 [employer]- All Rights Reserved Reading location - IP/workstation name: [email or web address]
[2020-04-09] MEDS: RINGERS SOLUTION,LACTATED 1,000 ML IV PRN (17:40)
[2020-04-09 18:44] LABS: ANION GAP 8 (5-19); BLOOD UREA NITROGEN 27 mg/dL (7-20); CALCIUM 7.6 mg/dL (8.4-10.2); CARBON DIOXIDE 32 mmol/L (22-30); CHLORIDE 103 mmol/L (98-107); GLUCOSE 121 mg/dL (75-110); POTASSIUM 4.4 mmol/L (3.6-5.0)
--- NOTE | 2020-04-09 19:20 | PDOC PROGRESS REPORT ---
Subjective Date:: 04/09/20 Subjective:: Patient is alert on noninvasive positive pressure ventilation she responds to qu estion, the chest x-ray that was done today stable from yesterday no worsening of infiltrate, she has severe hyperglycemia most likely secondary to the steroid, insulin infusion started yesterday Reason For Visit: PNEUMONIA,T2DM,COPD Physical Exam Vital Signs: Temp Pulse Resp BP Pulse Ox 97.5 F 94 25 H 155/84 H 93 04/09/20 11:20 04/09/20 16:27 04/09/20 16:27 04/09/20 11:20 04/09/20 16:27 Intake & Output 04/08/20 04/09/20 04/10/20 06:59 06:59 06:59 Intake Total 1910 1516 289 Output Total 2150 2500 Balance -240 -984 289 Weight 134.4 kg 133.4 kg General appearance: PRESENT: other - Patient on BiPAP, alert Eye exam: PRESENT: PERRLA Respiratory exam: PRESENT: clear to auscultation abigail Cardiovascular exam: PRESENT: +S1, +S2 GI/Abdominal exam: PRESENT: soft Neurological exam: PRESENT: alert, CN II-XII grossly intact Results Laboratory Results: 04/09/20 03:40 04/09/20 17:40 04/09/20 04/09/20 04/09/20 00:30 03:40 03:40 WBC 17.1 H RBC 3.53 L Hgb 8.3 L Hct 26.5 L MCV 75 L MCH 23.5 L MCHC 31.3 L RDW 17.4 H Plt Count 488 H Seg Neutrophils % Not Reportable Sodium 133.4 L 138.9 Potassium 5.0 5.1 H Chloride 94 L 97 L Carbon Dioxide 33 H 38 H Anion Gap 6 4 L BUN 30 H 29 H Creatinine 0.81 0.87 Est GFR ( Amer) > 60 > 60 Glucose 441 H* 317 H Calcium 8.0 L 8.2 L Total Bilirubin 0.4 AST 34 Alkaline Phosphatase 81 Total Protein 5.8 L Albumin 2.9 L 04/09/20 04/09/20 04/09/20 09:45 13:25 17:40 WBC RBC Hgb Hct MCV MCH MCHC RDW Plt Count Seg Neutrophils % Sodium 139.4 138.8 142.5 Potassium 5.1 H 5.1 H 4.4 Chloride 100 97 L 103 Carbon Dioxide 31 H 37 H 32 H Anion Gap 8 5 8 BUN 32 H 29 H 27 H Creatinine 0.73 0.86 0.81 Est GFR ( Amer) > 60 > 60 > 60 Glucose 228 H 234 H 121 H Calcium 8.3 L 8.1 L 7.6 L Total Bilirubin AST Alkaline Phosphatase Total Protein Albumin 04/07/20 04/07/20 04/07/20 00:26 02:33 02:33 Creatine Kinase 87 CK-MB (CK-2) 0.41 Troponin I 0.015 0.026 NT-Pro-B Natriuret Pep 186 H 184 H 04/08/20 09:23 Creatine Kinase CK-MB (CK-2) Troponin I 0.016 NT-Pro-B Natriuret Pep Impressions: Chest/Abdomen CTA 04/07/20 01:46 IMPRESSION: Negative for pulmonary embolism. Extensive interstitial and alveolar opacities throughout the lungs concerning for multi lobar multifocal pneumonia. TECHNICAL DOCUMENTATION: Quality ID # 436: Final reports with documentation of one or more dose reduction techniques (e.g., Automated exposure control, adjustment of the mA and/or kV according to patient size, use of iterative reconstruction technique) copyright 2011 [employer]- All Rights Reserved PICC Line Insertion 04/08/20 00:00 IMPRESSION: SUCCESSFUL PLACEMENT OF A 5 FR DUAL LUMEN 44 CM PICC IN THE LEFT BASILIC VEIN. Chest X-Ray 04/09/20 00:00 IMPRESSION: Stable radiographic appearance of the chest demonstrating bibasilar airspace opacities and a left upper extremity PICC. Assessment & Plan - Diagnosis (1) Acute hypoxemic respiratory failure Is this a current diagnosis for this admission?: Yes Plan: Patient on BiPAP, continue BiPAP support, (2) Multifocal pneumonia Is this a current diagnosis for this admission?: Yes Plan: Continue triple antibiotic, no specific pathogen isolated yet, she had copious sputum earlier today, unfortunately, not cultured (3) Type 2 diabetes mellitus with diabetic polyneuropathy Qualifiers: Diabetes mellitus residential insulin use: without terminal operator use Qualified Code(s): E11.42 - Type 2 diabetes mellitus with diabetic polyneuropathy Is this a current diagnosis for this admission?: Yes Plan: Patient started on insulin drip (4) COPD exacerbation Is this a current diagnosis for this admission?: Yes Plan: Patient on low-dose steroid, no wheezing today - Time Time Spent with patient: 35 or more minutes Level of Care: IMCU Medications reviewed and adjusted accordingly: Yes Anticipated discharge: Home Anticipated DC Timeframe: Other - 7 days
[2020-04-09 21:05] LABS: BLOOD UREA NITROGEN 30 mg/dL (7-20); CALCIUM 8.4 mg/dL (8.4-10.2); POTASSIUM 4.9 mmol/L (3.6-5.0)
[2020-04-09 21:11] LABS: ANION GAP 5 (5-19); CARBON DIOXIDE 36 mmol/L (22-30); CHLORIDE 101 mmol/L (98-107)
[2020-04-09 21:13] LABS: GLUCOSE 62 mg/dL (75-110)
[2020-04-09] MEDS: ENOXAPARIN SODIUM INJ 40 MG/0.4 ML DISP.SYRIN SUBCUT SCH (21:38)
[2020-04-09] MEDS: ATORVASTATIN CALCIUM 40 MG TABLET PO SCH (21:39)
[2020-04-09] MEDS: TEMAZEPAM 7.5 MG CAPSULE PO PRN (22:43)
[2020-04-10] MEDS: NORMAL SALINE 100 ML with INSULIN REGULAR, HUMAN 100 UNIT IV PRN ×2 (02:24)
[2020-04-10 05:10] LABS: APPEARANCE,URINE CLOUDY; BILIRUBIN,URINE NEGATIVE (NEGATIVE); COLOR,URINE YELLOW; GLUCOSE, URINE 50 mg/dL (NEGATIVE); KETONES,URINE NEGATIVE (NEGATIVE); LEUKOCYTE ESTERASE,URINE MODERATE (NEGATIVE); NITRITE,URINE NEGATIVE (NEGATIVE); PROTEIN,URINE 100 mg/dL (NEGATIVE); URINE SPECIFIC GRAVITY 1.021; UROBILINOGEN,URINE NEGATIVE mg/dL (<2.0)
[2020-04-10] MEDS: CEFEPIME HCL 2 GM in DEXTROSE 5%-WATER 50 ML IV SCH ×2 (05:44→20:32)
[2020-04-10] MEDS: LEVOFLOXACIN 750 MG/D5W RTU 750 MG/150 ML RTUPB IV SCH (05:44)
[2020-04-10] MEDS: METHYLPREDNISOLONE INJ 40 MG/1 ML SDV IV SCH ×2 (05:51→13:25)
[2020-04-10 06:10] LABS: HEMATOCRIT 27.1 % (36.0-47.0); HEMOGLOBIN 8.5 g/dL (12.0-15.5); MEAN CORPUSCULAR HEMOGLOBIN 23.5 pg (27.0-33.4); MEAN CORPUSCULAR HGB CONC 31.4 g/dL (32.0-36.0); MEAN CORPUSCULAR VOLUME 75 fl (80-97); PLATELET COUNT 437 10^3/uL (150-450); RED BLOOD COUNT 3.62 10^6/uL (3.72-5.28); RED CELL DISTRIBUTION WIDTH 18.1 % (11.5-14.0); WHITE BLOOD COUNT 22.1 10^3/uL (4.0-10.5)
[2020-04-10 06:39] LABS: ABSOLUTE LYMPHOCYTES# (MANUAL) 0.4 10^3/uL (0.5-4.7); ABSOLUTE MONOCYTES # (MANUAL) 0.9 10^3/uL (0.1-1.4); BAND NEUTROPHILS % (MANUAL) 3 % (3-5); BASOPHILS % (MANUAL) 0 % (0-2); EOSINOPHILS % (MANUAL) 0 % (0-6); LYMPHOCYTES % (MANUAL) 2 % (13-45); MONOCYTES % (MANUAL) 4 % (3-13); SEGMENTED NEUTROPHILS % (MAN) 91 % (42-78); TOTAL CELLS COUNTED 100
[2020-04-10 06:40] LABS: ANISOCYTOSIS 2+; OVALOCYTES SLIGHT; PLATELET COMMENT ADEQUATE; POIKILOCYTOSIS SLIGHT; TARGET CELLS SLIGHT
[2020-04-10 06:53] LABS: BLOOD UREA NITROGEN 31 mg/dL (7-20); CALCIUM 8.1 mg/dL (8.4-10.2); CARBON DIOXIDE 36 mmol/L (22-30); CHLORIDE 100 mmol/L (98-107); GLUCOSE 118 mg/dL (75-110); POTASSIUM 5.6 mmol/L (3.6-5.0)
[2020-04-10 07:13] LABS: ANION GAP 4 (5-19)
[2020-04-10] MEDS: INSULIN LISPRO 100 UNIT/ML 3 ML VIAL SUBCUT SCH ×3 (08:00→16:45)
[2020-04-10] MEDS: IPRATROPIUM/ALBUTEROL 0.5-2.5 MG/3 ML AMPUL NEB SCH ×2 (09:00→12:17)
--- NOTE | 2020-04-10 09:15 | RADIOLOGY REPORT (SQ) ---
EXAM DESCRIPTION: CHEST SINGLE VIEW IMAGES COMPLETED DATE/TIME: 04/10/2020 8:41 am REASON FOR STUDY: pneumonia COMPARISON: 04/09/2020. EXAM PARAMETERS: NUMBER OF VIEWS: One view. TECHNIQUE: Single frontal radiographic view of the chest acquired. RADIATION DOSE: NA LIMITATIONS: None. FINDINGS: LUNGS AND PLEURA: Diffuse bilateral infiltrates, unchanged. MEDIASTINUM AND HILAR STRUCTURES: No masses. Contour normal. HEART AND VASCULAR STRUCTURES: Heart normal in size. Normal vasculature. BONES: No acute findings. HARDWARE: None in the chest. OTHER: No other significant finding. IMPRESSION: NO CHANGE IN APPEARANCE OF THE CHEST. TECHNICAL DOCUMENTATION: JOB ID: [id number] 2010 [employer]- All Rights Reserved Reading location - IP/workstation name: [email or web address]
[2020-04-10] MEDS: VANCOMYCIN HCL 1,500 MG in DEXTROSE 5%-WATER 250 ML IV SCH (09:56)
[2020-04-10] MEDS: NORMAL SALINE INJ/PF 0.9% 10 ML SDV IV SCH (13:23)
[2020-04-10 14:21] LABS: ANION GAP 9 (5-19); BLOOD UREA NITROGEN 33 mg/dL (7-20); CALCIUM 8.3 mg/dL (8.4-10.2); CARBON DIOXIDE 34 mmol/L (22-30); CHLORIDE 100 mmol/L (98-107); GLUCOSE 83 mg/dL (75-110)
[2020-04-10] MEDS: LEVALBUTEROL HCL NEB 1.25 MG/3 ML AMPUL NEB SCH ×2 (16:43→20:27)
--- NOTE | 2020-04-10 18:08 | CRITICAL CARE ADMISSION REPORT ---
HPI Date:: 04/10/20 Time:: 18:00 Reason for ICU Reason:: Closer monitoring Admission Date/Time & PCP: Admission Date/Time: 04/07/20 02:13 Primary Care Provider: OLU TREJO MD HPI: PHAN SEAMAN is a 65 year old female, She has multiple comorbid conditions including chronic obstructive lung disease, hypertension, chronic respiratory failure on home oxygen she came to the emergency room for evaluation of res piratory distress, shortness of breath, she called the office couple of days ago requesting to have antibiotic for respiratory symptoms, she was prescribed azithromycin, patient symptoms continue to progress she was advised to come to the office to get tested for SARS-CoV-2 infection. As symptoms progresses she called rescue squad she was transferred to the emergency room for evaluation.She was evaluated in the ER she had a chest x-ray done that demonstrated airspace consolidation in the right midlung,right inferior hemithorax ,also found was airspace consolidation along the lateral left hemithorax as well findings consistent with multifocal pneumonia. She also underwent CT angiogram of the chest this demonstrated extensive consolidation in the right upper lobe, the right lower lobe, peripherally of the left upper and lower lobes. Extensive interstitial changes with honeycombing also present the trachea central airways were clear there was no pulmonary embolus demonstrated on the CT angiogram.The arterial blood gas on 100% FiO2 pH is 7.4, PO2 99.3, PCO2 30.3, bicarbonate is 23.4, SARS-CoV-2 test was negative History obtained from:: Patient, Dr. Cerda. - Diagnosis/Plan (1) Pneumonia due to COVID-19 virus Is this a current diagnosis for this admission?: Yes Plan: Rapid response called for awake and stable but hypoxic patient with oxygen saturations 75-85%. Pt SOB as before. Known as a COVID 'happy hypoxemic". Need to monitor in ICU. No intubation unless hypercarbic or obtunded. (2) COPD exacerbation Is this a current diagnosis for this admission?: Yes Plan: No wheezing, continue steroids. Plan Summary: Monitor in ICU. Past Medical History Cardiac Medical History: Reports: Hypertension - MEDS Denies: Coronary Artery Disease, Myocardial Infarction Pulmonary Medical History: Reports: Chronic Obstructive Pulmonary Disease (COPD) - WEARS 3L O2 AT NIGHT Denies: Asthma, Bronchitis, Pneumonia Neurological Medical History: Denies: Seizures Endocrine Medical History: Reports: Diabetes Mellitus Type 2, Obesity Musculoskeltal Medical History: Denies: Arthritis Psychiatric Medical History: Denies: Depression Hematology: Reports: Anemia Social/Family History - Social History Smoking Status: Smoker,Current Status Unk Frequency of Alcohol Use: None Hx Recreational Drug Use: No Drugs: None Hx Prescription Drug Abuse: No - Medication/Allergies Home Medications: Albuterol Sulfate [Proair HFA Inhalation Aerosol 8.5 gm MDI] 2 puff IH Q4H PRN #1 mdi 06/08/12 Clonidine HCl [Catapres 0.3 mg Tablet] 0.3 mg PO TID 06/08/12 Hydralazine HCl 50 mg PO BID 02/10/13 Metformin HCl [Glumetza ER 500 mg Tablet] 500 mg PO BID 02/10/13 Fluticasone/Vilanterol [Breo Ellipta 200-25 Mcg INH] 1 each IH DAILY 06/25/18 Insulin Glargine,Hum.rec.anlog [Lantus Insulin 100 Unit/1 ml 10 ml] 12 unit SUBCUT DAILY 06/25/18 Iron 195 mg PO DAILY 06/25/18 Olmesartan/Amlodipin/Hcthiazid [Qphqwqv-Dutcha-Uqqo 40-10-25Mg] 1 each PO DAILY 06/25/18 Atorvastatin Calcium [Lipitor 40 mg Tablet] 40 mg PO QHS 04/07/20 Glimepiride [Amaryl 4 mg Tablet] 4 mg PO DAILY 04/07/20 Montelukast Sodium [Singulair 10 mg Tablet] 10 mg PO QHS 04/07/20 Pioglitazone HCl [Actos 15 mg Tablet] 1 tab PO DAILY 04/07/20 Liraglutide [Victoza 2-Singh] 0.6 mg INJ DAILY 04/08/20 Allergies/Adverse Reactions: codeine [Codeine] Allergy (Unknown, Verified 06/26/18 15:46) Review of Systems Constitutional: ABSENT: chills, fever(s), headache(s), weight gain, weight loss Physical Exam Vital Signs: Temp Pulse Resp BP Pulse Ox 97.7 F 112 H 28 H 177/92 H 85 L 04/10/20 11:06 04/10/20 16:43 04/10/20 16:43 04/10/20 11:06 04/10/20 16:43 Intake & Output 04/09/20 04/10/20 04/11/20 06:59 06:59 06:59 Intake Total 1516 1020 225 Output Total 2500 Balance -984 1020 225 Weight 133.4 kg 134.8 kg Weight/Height Weight 134.8 kg Height 5 ft 9 in General appearance: PRESENT: no acute distress, cooperative, obese Head exam: PRESENT: atraumatic, normocephalic Eye exam: PRESENT: conjunctiva pink, EOMI, PERRLA. ABSENT: scleral icterus Ear exam: PRESENT: normal external ear exam Mouth exam: PRESENT: moist, tongue midline Respiratory exam: PRESENT: clear to auscultation abigail. ABSENT: rales, rhonchi, wheezes Cardiovascular exam: PRESENT: RRR, tachycardia. ABSENT: diastolic murmur, rubs, systolic murmur GI/Abdominal exam: PRESENT: normal bowel sounds, soft. ABSENT: distended, guarding, mass, organolmegaly, rebound, tenderness Rectal exam: PRESENT: deferred Extremities exam: PRESENT: full ROM. ABSENT: calf tenderness, clubbing, pedal edema Musculoskeletal exam: PRESENT: normal inspection Neurological exam: PRESENT: alert, awake, oriented to person, oriented to place, oriented to time, oriented to situation, CN II-XII grossly intact. ABSENT: motor sensory deficit Psychiatric exam: PRESENT: appropriate affect, normal mood. ABSENT: homicidal ideation, suicidal ideation Tubes/Lines: PRESENT: Other - Bipap. Laboratory/Radiographs Laboratory Results: 04/10/20 05:50 04/10/20 13:30 04/09/20 04/09/20 04/10/20 17:40 20:30 04:12 WBC RBC Hgb Hct MCV MCH MCHC RDW Plt Count Seg Neutrophils % Sodium 142.5 142.2 Potassium 4.4 4.9 Chloride 103 101 Carbon Dioxide 32 H 36 H Anion Gap 8 5 BUN 27 H 30 H Creatinine 0.81 0.88 Est GFR ( Amer) > 60 > 60 Glucose 121 H 62 L Calcium 7.6 L 8.4 Urine Color YELLOW Urine Appearance CLOUDY Urine pH 6.0 Ur Specific [place] 1.021 Urine Protein 100 H Urine Glucose (UA) 50 H Urine Ketones NEGATIVE Urine Blood SMALL H Urine Nitrite NEGATIVE Ur Leukocyte Esterase MODERATE H Urine WBC (Auto) 19 Urine RBC (Auto) 5 04/10/20 04/10/20 04/10/20 05:50 05:50 13:30 WBC 22.1 H RBC 3.62 L Hgb 8.5 L Hct 27.1 L MCV 75 L MCH 23.5 L MCHC 31.4 L RDW 18.1 H Plt Count 437 Seg Neutrophils % Not Reportable Sodium 140.1 142.5 Potassium 5.6 H 5.0 Chloride 100 100 Carbon Dioxide 36 H 34 H Anion Gap 4 L 9 BUN 31 H 33 H Creatinine 0.88 0.85 Est GFR ( Amer) > 60 > 60 Glucose 118 H 83 Calcium 8.1 L 8.3 L Urine Color Urine Appearance Urine pH Ur Specific [place] Urine Protein Urine Glucose (UA) Urine Ketones Urine Blood Urine Nitrite Ur Leukocyte Esterase Urine WBC (Auto) Urine RBC (Auto) 04/07/20 06:45 Clean Catch Midstream Urine Culture - Final Urogenital Giovanna 04/07/20 04/07/20 04/07/20 00:26 02:33 02:33 Creatine Kinase 87 CK-MB (CK-2) 0.41 Troponin I 0.015 0.026 NT-Pro-B Natriuret Pep 186 H 184 H 04/08/20 09:23 Creatine Kinase CK-MB (CK-2) Troponin I 0.016 NT-Pro-B Natriuret Pep Impressions: Chest/Abdomen CTA 04/07/20 01:46 IMPRESSION: Negative for pulmonary embolism. Extensive interstitial and alveolar opacities throughout the lungs concerning for multi lobar multifocal pneumonia. TECHNICAL DOCUMENTATION: Quality ID # 436: Final reports with documentation of one or more dose reduction techniques (e.g., Automated exposure control, adjustment of the mA and/or kV according to patient size, use of iterative reconstruction technique) copyright 2011 [employer]- All Rights Reserved PICC Line Insertion 04/08/20 00:00 IMPRESSION: SUCCESSFUL PLACEMENT OF A 5 FR DUAL LUMEN 44 CM PICC IN THE LEFT BASILIC VEIN. Chest X-Ray 04/10/20 00:00 IMPRESSION: NO CHANGE IN APPEARANCE OF THE CHEST. All labs, radiographs, diagnostic studies and EKGs were personally reviewed: Yes In addition, reports of radiographic and diagnostic studies were read: Yes Critical Time Critical Time (minutes): 35 -: The care of a critically ill patient is dynamic. This note represents a static moment in the admission process. Orders and treatments may be given simultaneously and urgently, and time is not national account representative of the treatment process. This patient requires Critical Care secondary to life threatening organ or limb dysfunction. Without Critical Care services, the patient is at risk for increased mortality and morbidity.
[2020-04-10 18:15] LABS: ARTERIAL BLOOD BASE EXCESS 4.9 mmol/L; ARTERIAL BLOOD H2CO3 1.79 mmol/L (1.05-1.35); ARTERIAL BLOOD HCO3 31.7 mmol/L (20-24); ARTERIAL BLOOD O2 SATURATION 80.9 % (94-98); ARTERIAL BLOOD PCO2 59.5 mmHg (35-45); ARTERIAL BLOOD PH 7.35 (7.35-7.45); ARTERIAL BLOOD PO2 48.4 mmHg (80-100); ARTERIAL BLOOD TOTAL CO2 33.6 mmol/L (21-25)
[2020-04-10 18:16] LABS: ARTERIAL BLOOD FIO2 100%
[2020-04-10] MEDS ORDERED: REMDESIVIR 200 MG in NORMAL SALINE 250 ML IV ONE (19:00)
[2020-04-10] MEDS ORDERED: MORPHINE SULFATE 10 MG/ML INJ ONE (19:09)
[2020-04-10] MEDS ORDERED: MORPHINE SULFATE 10 MG/ML INJ IV ONE (19:30)
[2020-04-10] MEDS: RINGERS SOLUTION,LACTATED 1,000 ML IV PRN (20:38)
--- NOTE | 2020-04-10 21:05 | PDOC PROGRESS REPORT ---
Subjective Date:: 04/10/20 Subjective:: Patient is alert on noninvasive positive pressure ventilation she responds to qu estion, the chest x-ray that was done today stable from yesterday no worsening of infiltrate, she has severe hyperglycemia most likely secondary to the steroid, insulin infusion started yesterday 04/10/2020 Patient was admitted for multifocal pneumonia, initially it was felt that she has bacterial pneumonia, the SARS-CoV-2 test was initially negative, patient respiration was supported with BiPAP.She was on triple antibiotic, no bacteria was culture from the blood on this patient after 4 days of IV antibiotic, and I felt the initial SARS-CoV-2 test could be false negative especially since no bacteria was cultured from the blood oR the sputum despite severe pneumonia, a repeat SARS-CoV-2 test came back positive today. Patient was in semiprone position to help with breathing despite all these measures patient unable to maintain adequate oxygenation Reason For Visit: COVID PNA AND HYPOXIA Physical Exam Vital Signs: Temp Pulse Resp BP Pulse Ox 97.7 F 115 H 33 H 177/92 H 78 L 04/10/20 11:06 04/10/20 20:27 04/10/20 20:27 04/10/20 11:06 04/10/20 20:27 Intake & Output 04/09/20 04/10/20 04/11/20 06:59 06:59 06:59 Intake Total 1516 1020 1475 Output Total 2500 340 Balance -984 1020 1135 Weight 133.4 kg 134.8 kg General appearance: PRESENT: severe distress Respiratory exam: PRESENT: clear to auscultation abigail Cardiovascular exam: PRESENT: +S1, +S2 Neurological exam: PRESENT: alert Results Laboratory Results: 04/10/20 05:50 04/10/20 13:30 04/09/20 04/10/20 04/10/20 20:30 04:12 05:50 WBC RBC Hgb Hct MCV MCH MCHC RDW Plt Count Seg Neutrophils % Carbonic Acid HCO3/H2CO3 Ratio ABG pH ABG pCO2 ABG pO2 ABG HCO3 ABG O2 Saturation ABG Base Excess FiO2 Sodium 142.2 140.1 Potassium 4.9 5.6 H Chloride 101 100 Carbon Dioxide 36 H 36 H Anion Gap 5 4 L BUN 30 H 31 H Creatinine 0.88 0.88 Est GFR ( Amer) > 60 > 60 Glucose 62 L 118 H Calcium 8.4 8.1 L Urine Color YELLOW Urine Appearance CLOUDY Urine pH 6.0 Ur Specific [place] 1.021 Urine Protein 100 H Urine Glucose (UA) 50 H Urine Ketones NEGATIVE Urine Blood SMALL H Urine Nitrite NEGATIVE Ur Leukocyte Esterase MODERATE H Urine WBC (Auto) 19 Urine RBC (Auto) 5 04/10/20 04/10/20 04/10/20 05:50 13:30 17:30 WBC 22.1 H RBC 3.62 L Hgb 8.5 L Hct 27.1 L MCV 75 L MCH 23.5 L MCHC 31.4 L RDW 18.1 H Plt Count 437 Seg Neutrophils % Not Reportable Carbonic Acid 1.79 H HCO3/H2CO3 Ratio 17:1 ABG pH 7.35 ABG pCO2 59.5 H ABG pO2 48.4 L ABG HCO3 31.7 H ABG O2 Saturation 80.9 L ABG Base Excess 4.9 FiO2 100% Sodium 142.5 Potassium 5.0 Chloride 100 Carbon Dioxide 34 H Anion Gap 9 BUN 33 H Creatinine 0.85 Est GFR ( Amer) > 60 Glucose 83 Calcium 8.3 L Urine Color Urine Appearance Urine pH Ur Specific [place] Urine Protein Urine Glucose (UA) Urine Ketones Urine Blood Urine Nitrite Ur Leukocyte Esterase Urine WBC (Auto) Urine RBC (Auto) 04/07/20 06:45 Clean Catch Midstream Urine Culture - Final Urogenital Giovanna 04/07/20 04/07/20 04/07/20 00:26 02:33 02:33 Creatine Kinase 87 CK-MB (CK-2) 0.41 Troponin I 0.015 0.026 NT-Pro-B Natriuret Pep 186 H 184 H 04/08/20 09:23 Creatine Kinase CK-MB (CK-2) Troponin I 0.016 NT-Pro-B Natriuret Pep Impressions: Chest/Abdomen CTA 04/07/20 01:46 IMPRESSION: Negative for pulmonary embolism. Extensive interstitial and alveolar opacities throughout the lungs concerning for multi lobar multifocal pneumonia. TECHNICAL DOCUMENTATION: Quality ID # [id number]: Final reports with documentation of one or more dose reduction techniques (e.g., Automated exposure control, adjustment of the mA and/or kV according to patient size, use of iterative reconstruction technique) copyright 2011 [employer]- All Rights Reserved PICC Line Insertion 04/08/20 00:00 IMPRESSION: SUCCESSFUL PLACEMENT OF A 5 FR DUAL LUMEN 44 CM PICC IN THE LEFT BASILIC VEIN. Chest X-Ray 04/10/20 00:00 IMPRESSION: NO CHANGE IN APPEARANCE OF THE CHEST. Assessment & Plan - Diagnosis (1) Acute hypoxemic respiratory failure Is this a current diagnosis for this admission?: Yes Plan: Patient on BiPAP, continue BiPAP support ,transferred to ICU (2) Multifocal pneumonia Is this a current diagnosis for this admission?: Yes (3) Type 2 diabetes mellitus with diabetic polyneuropathy Qualifiers: Diabetes mellitus metrology manager insulin use: without care home use Qualified Code(s): E11.42 - Type 2 diabetes mellitus with diabetic polyneuropathy Is this a current diagnosis for this admission?: Yes (4) COPD exacerbation Is this a current diagnosis for this admission?: Yes (5) Pneumonia due to COVID-19 virus Is this a current diagnosis for this admission?: Yes Plan: Start remdesivir, DC Solu-Medrol start dexamethasone - Time Time Spent with patient: 35 or more minutes Level of Care: ICU Medications reviewed and adjusted accordingly: Yes Anticipated discharge: Other Anticipated DC Timeframe: Other - I spoke to the patient's family about plan of care and that the second test for SARS-CoV-2 was positive suggesting that the first test was false negative
[2020-04-10] MEDS ORDERED: DEXAMETHASONE SOD PHOS INJ 10 MG/1 ML VIAL IV SCH (22:00)
[2020-04-10 22:18] LABS: ARTERIAL BLOOD BASE EXCESS 1.4 mmol/L; ARTERIAL BLOOD H2CO3 2.26 mmol/L (1.05-1.35); ARTERIAL BLOOD HCO3 31.3 mmol/L (20-24); ARTERIAL BLOOD O2 SATURATION 69.8 % (94-98); ARTERIAL BLOOD PH 7.24 (7.35-7.45); ARTERIAL BLOOD PO2 43.9 mmHg (80-100); ARTERIAL BLOOD TOTAL CO2 33.6 mmol/L (21-25)
[2020-04-10 22:19] LABS: ARTERIAL BLOOD FIO2 100%; ARTERIAL BLOOD PCO2 75.2 mmHg (35-45)
[2020-04-10] MEDS ORDERED: ETOMIDATE INJ/PF 20 MG/10 ML SDV IV ONE (22:26)
[2020-04-10] MEDS ORDERED: CEFEPIME HCL 2 GM in DEXTROSE 5%-WATER 50 ML IV SCH (23:00)
[2020-04-10] MEDS ORDERED: PROPOFOL 1,000 MG/100 ML INFUS..BTL IV PRN (23:13)
[2020-04-10] MEDS ORDERED: PROPOFOL 1,000 MG/100 ML INFUS..BTL IV ONE (23:13)
--- NOTE | 2020-04-10 23:32 | RADIOLOGY REPORT (SQ) ---
CLINICAL HISTORY: ETT placement COMPARISON: 04/10/2020. TECHNIQUE: XR CHEST 1 VIEW 04/10/2020 12:00 AM SHIPPING ASSISTANT FINDINGS: Cardiac silhouette is normal in size. There is extensive diffuse airspace disease throughout both lungs. There is no pleural effusion. There is no pneumothorax. There are no acute osseous findings. Endotracheal tube tip is in the midtrachea. NG tube tip is in the stomach. Left PICC line is unchanged. IMPRESSION: Status post intubation. Extensive, significantly worsening bilateral pneumonia.
[2020-04-11] MEDS: LEVALBUTEROL HCL NEB 1.25 MG/3 ML AMPUL NEB SCH ×3 (00:39→09:53)
[2020-04-11] MEDS: INSULIN LISPRO 100 UNIT/ML 3 ML VIAL SUBCUT SCH ×2 (00:59→01:50)
[2020-04-11] MEDS ORDERED: EPINEPHRINE INJ 1 MG/10 ML DISP.SYRIN ONE ×3 (01:00→05:07)
[2020-04-11] MEDS ORDERED: NOREPINEPHRINE BITARTRATE INJ/PF 4 MG/4 ML SDV IV ONE (01:09)
[2020-04-11] MEDS: VANCOMYCIN HCL 1,500 MG in DEXTROSE 5%-WATER 250 ML IV SCH (01:15)
[2020-04-11] MEDS: NORMAL SALINE INJ/PF 0.9% 10 ML SDV IV SCH (01:50)
[2020-04-11 02:27] LABS: ARTERIAL BLOOD BASE EXCESS 1.4 mmol/L; ARTERIAL BLOOD H2CO3 1.93 mmol/L (1.05-1.35); ARTERIAL BLOOD O2 SATURATION 80.6 % (94-98); ARTERIAL BLOOD PCO2 64.1 mmHg (35-45); ARTERIAL BLOOD PH 7.27 (7.35-7.45); ARTERIAL BLOOD PO2 51.5 mmHg (80-100)
[2020-04-11 02:28] LABS: ARTERIAL BLOOD FIO2 100%
[2020-04-11] MEDS ORDERED: DEXTROSE 5%-WATER 250 ML with VASOPRESSIN 100 UNIT IV PRN ×2 (03:52)
--- NOTE | 2020-04-11 03:58 | Operative Report ---
Bedside Procedure - History of Present Illness Indication for Procedure: Acute Respiratory Failure Provider: PARAS INFANTE - Intubation Orotracheal Airway evaluation: Large tongue, Obese Mallampati Classification: Class 3 Medications: Etomidate, Other - Rocuronium Intubation method: Orotracheal Blade type: [place] Blade size: 4 Equipment used: Glidescope ETT size: 7.5 ETT secured at: Teeth ETT secured at (cm): 24 Post Intubation Xray: Yes Intubation Complications: No complications
[2020-04-11] MEDS ORDERED: SODIUM BICARBONATE 8.4% INJ 50 MEQ/50 ML DISP.SYRIN ONE ×3 (04:05→05:06)
[2020-04-11] MEDS ORDERED: VASOPRESSIN INJ 20 UNIT/1 ML VIAL ONE ×2 (04:12→04:18)
[2020-04-11] MEDS ORDERED: EPINEPHRINE INJ/PF 1 MG/1 ML AMPULE ONE (04:41)
--- NOTE | 2020-04-11 06:09 | Death Summary ---
Summary Date : 04/11/20 Time of :: 05:40 Autopsy: No Resuscitation Status: Do Not Resuscitate - Final Diagnosis (1) Pneumonia due to COVID-19 virus Is this a current diagnosis for this admission?: Yes Hospital Course:: PHAN SEAMAN is a 65 year old female, She has multiple comorbid conditions including chronic obstructive lung disease, hypertension, chronic respiratory fa ilure on home oxygen she came to the emergency room for evaluation of respiratory distress, shortness of breath, she called the office couple of days ago requesting to have antibiotic for respiratory symptoms, she was prescribed azithromycin, patient symptoms continue to progress she was advised to come to the office to get tested for SARS-CoV-2 infection. As symptoms progresses she called rescue squad she was transferred to the emergency room for evaluation.She was evaluated in the ER she had a chest x-ray done that demonstrated airspace consolidation in the right midlung,right inferior hemithorax ,also found was airspace consolidation along the lateral left hemithorax as well findings consistent with multifocal pneumonia. She also underwent CT angiogram of the chest this demonstrated extensive consolidation in the right upper lobe, the right lower lobe, peripherally of the left upper and lower lobes. Extensive interstitial changes with honeycombing also present the trachea central airways were clear there was no pulmonary embolus demonstrated on the CT angiogram.The arterial blood gas on 100% FiO2 pH is 7.4, PO2 99.3, PCO2 30.3, bicarbonate is 23.4, SARS-CoV-2 test was negative on 04/07/2020 but repeat test on 04/10/2020 was positive. Pt went into asystolic arrest at 0300,0330,0400,0500 multiple rounds of epi and bicarb CPR initiated each time with ROSC discussed poor prognosis with family and they decided to make pt a DNR. She at 0540
[2020-04-11 09:11] VITALS: BP 110/79
[2020-04-11] MEDS ORDERED: ENOXAPARIN SODIUM INJ 40 MG/0.4 ML DISP.SYRIN SUBCUT SCH (10:00)
[2020-04-11] MEDS ORDERED: REMDESIVIR 100 MG in NORMAL SALINE 250 ML IV SCH (22:00)
== END 2020-04-11 05:40 | disposition left against medical advice (07) | DRG 208 ==
LOC: ER 00:16 → EH 02:13 → 5 06:03 → 3N 04-10 15:42 → ICU 04-10 18:01
PROVIDERS: ADMIT Anesthesiology; ATTEND Anesthesiology
PROC: 5A09457 Assistance with Respiratory Ventilation, 24-96 Consecutive Hours, Continuous Positive Airway Pressure (ICD-10-PCS; 2020-04-07)
PROC: 02HV33Z Insertion of Infusion Device into Superior Vena Cava, Percutaneous Approach (ICD-10-PCS; 2020-04-08)
PROC: B548ZZA Ultrasonography of Superior Vena Cava, Guidance (ICD-10-PCS; 2020-04-08)
PROC: XW033E5 Introduction of Remdesivir Anti-infective into Peripheral Vein, Percutaneous Approach, New Technology Group 5 (ICD-10-PCS; 2020-04-10)
PROC: 5A1935Z Respiratory Ventilation, Less than 24 Consecutive Hours (ICD-10-PCS; principal; 2020-04-11)
PROC: 0BH17EZ Insertion of Endotracheal Airway into Trachea, Via Natural or Artificial Opening (ICD-10-PCS; 2020-04-11)
DX: U07.1 COVID-19 (principal); J12.82 Pneumonia due to coronavirus disease 2019; J96.11 Chronic respiratory failure with hypoxia; J44.1 Chronic obstructive pulmonary disease with (acute) exacerbation; J44.0 Chronic obstructive pulmonary disease with (acute) lower respiratory infection; Z66 Do not resuscitate; I10 Essential (primary) hypertension; Z99.81 Dependence on supplemental oxygen; E66.9 Obesity, unspecified; E11.42 Type 2 diabetes mellitus with diabetic polyneuropathy; E83.51 Hypocalcemia; Z79.899 Other long term (current) drug therapy; Z88.6 Allergy status to analgesic agent; Z87.891 Personal history of nicotine dependence; Z79.4 Long term (current) use of insulin
CPT/HCPCS: 36415; 36573; 36600; 71045; 71275; 80053; 80202; 81001; 82550; 82553; 82728; 82803; 82962; 83036; 83605; 83615; 83880; 83970; 84484; 85025; 85379; 85384; 85610; 85730; 86140; 87040; 87070; 87086; 87205; 92950; 93005; 93010; 94002; 94640; 94660; 96361; 96374; 96375; 99285; 99291; 0202U; C9803; J0171; J0456; J0610; J0692; J0696; J1100; J1642; J1650; J1815; J1940; J1956; J2270; J2920; J2930; J3370; J3475; J3490; J7030; J7050; J7060; J7120; J7614